=== PATIENT | female | born 1990 | race Caucasian/White ===

== ENCOUNTER 2016-12-14 00:08 | Emergency (ER) | payer BC ==
[2016-12-14 00:22] VITALS: BP 113/66
[2016-12-14] MEDS ORDERED: Metoclopramide 10 MG/2 ML SDV IVPUSH ONE (00:34)
[2016-12-14] MEDS ORDERED: Sodium Chloride 0.9% 1,000 ML IV STA (00:34)
[2016-12-14] MEDS ORDERED: Sodium Chloride 0.9% 10 ML Syringe FLUSH PRN (00:34)
[2016-12-14] MEDS ORDERED: Alum Hydrox/Mag Hydrox/Simeth 30 ML, Lidocaine 2% 15 ML PO ONE ×2 (00:37)
[2016-12-14] MEDS ORDERED: Famotidine 20 MG/2 ML SDV IVPUSH ONE (00:37)
[2016-12-14] MEDS: HYDROmorphone 0.5 MG/0.5 ML Syringe IVPUSH ONE ×2 (01:08→01:43)
[2016-12-14] MEDS ORDERED: HYDROmorphone 0.5 MG/0.5 ML Syringe IVPUSH ONE (01:12)
--- NOTE | 2016-12-14 01:30 | EDM.PDOC ---
ED HPI GENERAL MEDICAL PROBLEM - General Chief Complaint: Abdominal Pain Stated Complaint: 8 WKS PG CRAMPS Time Seen by Provider: 12/14/16 00:30 Source of Information: Reports: Patient, Family History Limitations: Reports: No Limitations - History of Present Illness INITIAL COMMENTS - FREE TEXT/NARRATIVE: The patient presents with upper abdominal pain that started a few hours ago. The pain is sharp and severe. She has nausea and vomiting with it. She has no diarrhea or dysuria. She is 8 weeks . She has no fever or chills. The pain radiated up into her chest at times. She has no cramping, vaginal discharge or vaginal bleeding. She has never had pain like this before. She still has her appendix and gallbladder. She has a problem with constipation. She had a BM yesterday but she had none for a few days. Onset: Sudden Duration: Hour(s): (4) Location: Reports: Abdomen (Upper) Quality: Reports: Sharp Severity: Severe Improves with: Reports: None Worsens with: Reports: None Context: Reports: Activity Associated Symptoms: Reports: Nausea/Vomiting. Denies: Cough, Fever/Chills, Loss of Appetite, Seizure, Shortness of Breath Upper Abdomen Pain Score (Numeric/FACES): 6 - Related Data Allergies Allergy/AdvReac Type Severity Reaction Status Date / Time No Known Allergies Allergy Verified 12/14/16 00:22 Home Meds: Home Meds Multivit-Min/Fe Fum/FA/Vit K [Multi For Her Softgel] 1 tab PO DAILY 12/14/16 [ History] Progesterone,Micronized [Endometrin] 100 mg VAG TID 12/14/16 [History] Past Medical History - Past Health History Medical/Surgical History: Denies Medical/Surgical History Social & Family History - Family History Cardiac: Reports: [place] : Reports: Dialysis Endocrine/Metabolic: Reports: Hypothyroidism - Tobacco Use Smoking Status *Q: Never Smoker Years of Tobacco use: 1 Second Hand Smoke Exposure: No - Caffeine Use Caffeine Use: Reports: Soda, Tea - Alcohol Use Days Per Week of Alcohol Use: 1 Number of Drinks Per Day: 4 Total Drinks Per Week: 4 - Recreational Drug Use Recreational Drug Use: No ED ROS GENERAL - Review of Systems Review Of Systems: See Below Constitutional: Reports: No Symptoms HEENT: Reports: No Symptoms Respiratory: Reports: No Symptoms Cardiovascular: Reports: No Symptoms Endocrine: Reports: No Symptoms GI/Abdominal: Reports: Abdominal Pain, Nausea, Vomiting. Denies: Diarrhea ED EXAM, GI/ABD - Physical Exam Exam: See Below Exam Limited By: No Limitations General Appearance: Alert, Mild Distress Ears: Normal External Exam Nose: Normal Inspection Head: Atraumatic, Normocephalic Neck: Normal Inspection Respiratory/Chest: No Respiratory Distress, Lungs Clear, Normal Breath Sounds Cardiovascular: Regular Rate, Rhythm, No Edema, No Murmur GI/Abdominal: Soft, No Organomegaly, No Mass, Tenderness (Epigastric region) Back Exam: Normal Inspection Extremities: Normal Inspection Course - Vital Signs Last Recorded V/S: Last Vital Signs Temp 98.4 F 12/14/16 00:18 Pulse 72 12/14/16 00:18 Resp 16 12/14/16 00:18 BP 113/66 12/14/16 00:18 Pulse Ox 100 12/14/16 00:18 - Orders/Labs/Meds Orders: Active Orders 24 hr Category Date Time Status Peripheral IV Care [RC] . DIRECTED Care 12/14/16 00:35 Active Abdomen Ltd [US] Stat Exams 12/14/16 01:55 Taken Magnesium Citrate [Citrate of Magnesia] Med 12/14/16 04:02 Once 100 ml PO ONETIME ONE Sodium Chloride 0.9% [Saline Flush] Med 12/14/16 00:34 Active 10 ml FLUSH ASDIRECTED PRN ED Antiemetic Medication Reflex [OM.PC] Stat Oth 12/14/16 00:36 Ordered Peripheral IV Insertion Adult [OM.PC] Stat Oth 12/14/16 00:34 Ordered Medication Orders Sodium Chloride (Saline Flush) 10 ml FLUSH ASDIRECTED PRN PRN Reason: Keep Vein Open Labs: Laboratory Tests 12/14/16 12/14/16 12/14/16 Range/Units 01:07 01:07 01:25 WBC 17.50 H (3.98-10.04) K/mm3 RBC 4.93 (3.98-5.22) M/mm3 Hgb 14.2 (11.2-15.7) gm/L Hct 41.7 (34.1-44.9) % MCV 84.6 (79.4-94.8) fl MCH 28.8 (25.6-32.2) pg MCHC 34.1 (32.2-35.5) g/dl RDW Std Deviation 41.5 (36.4-46.3) fL Plt Count 273 (182-369) K/mm3 MPV 9.9 (9.4-12.3) fl Neut % (Auto) 78.8 H (34.0-71.1) % Lymph % (Auto) 13.3 L (19.3-51.7) % [place] % (Auto) 6.3 (4.7-12.5) % Eos % (Auto) 1.2 (0.7-5.8) Baso % (Auto) 0.2 (0.1-1.2) % Neut # (Auto) 13.79 H (1.56-6.13) K/mm3 Lymph # (Auto) 2.32 (1.18-3.74) K/mm3 [place] # (Auto) 1.11 H (0.24-0.36) K/mm3 Eos # (Auto) 0.21 (0.04-0.36) K/mm3 Baso # (Auto) 0.03 (0.01-0.08) K/mm3 Sodium 136 (136-145) mEq/L Potassium 4.2 (3.5-5.1) mEq/L Chloride 100 (98-107) mEq/L Carbon Dioxide 27 (21-32) mEq/L Anion Gap 13.2 (5-15) BUN 14 (7-18) mg/dL Creatinine 1.0 (0.55-1.02) mg/dL Est Cr Clr Drug Dosing 84.49 mL/min Estimated GFR (MDRD) > 60 (>60) mL/min BUN/Creatinine Ratio 14.0 (14-18) Glucose 131 H (74-106) mg/dL Calcium 9.0 (8.5-10.1) mg/dL Total Bilirubin 0.2 (0.2-1.0) mg/dL AST 18 (15-37) U/L ALT 35 (14-59) U/L Alkaline Phosphatase 72 (46-116) U/L Total Protein 7.7 (6.4-8.2) g/dl Albumin 3.6 (3.4-5.0) g/dl Globulin 4.1 gm/dL Albumin/Globulin Ratio 0.9 L (1-2) Lipase 124 (73-393) U/L Urine Color Yellow (Yellow) Urine Appearance Clear (Clear) Urine pH 6.0 (5.0-8.0) Ur Specific [place] > or = 1.030 (1.005-1.030) Urine Protein 1+ H (Negative) Urine Glucose (UA) Negative (Negative) Urine Ketones Negative (Negative) Urine Occult Blood Negative (Negative) Urine Nitrite Negative (Negative) Urine Bilirubin Negative (Negative) Urine Urobilinogen 0.2 (0.2-1.0) Ur Leukocyte Esterase Negative (Negative) Urine RBC 0-5 (0-5) /hpf Urine WBC 0-5 (0-5) /hpf Ur Epithelial Cells 0-5 (0-5) /hpf Urine Bacteria Many H (FEW) /hpf Urine Mucus Many H (FEW) /hpf Meds: Medications Generic Name Dose Route Start Last Admin Trade Name Freq PRN Reason Stop Dose Admin Sodium Chloride 10 ml 12/14/16 00:34 Saline Flush FLUSH ASDIRECTED PRN Keep Vein Open Discontinued Medications Generic Name Dose Route Start Last Admin Trade Name Freq PRN Reason Stop Dose Admin Al Hydroxide/Mg Hydroxide 30 0 ml 12/14/16 00:37 12/14/16 01:01 ml/ Lidocaine HCl 15 ml PO 12/14/16 00:38 45 ml ONETIME ONE Administration Famotidine 20 mg 12/14/16 00:37 12/14/16 01:09 Pepcid IVPUSH 12/14/16 00:38 20 mg ONETIME ONE Administration Hydromorphone HCl 0.5 mg 12/14/16 00:37 12/14/16 01:43 Dilaudid IVPUSH 12/14/16 00:38 Not Given ONETIME ONE Hydromorphone HCl 0.5 mg 12/14/16 01:12 12/14/16 01:17 Dilaudid IVPUSH 12/14/16 01:13 0.5 mg ONETIME ONE Administration Sodium Chloride 1,000 mls @ 1,000 mls/hr 12/14/16 00:34 12/14/16 01:05 Normal Saline IV 12/14/16 01:33 1,000 mls/hr .BOLUS STA Administration Metoclopramide HCl 10 mg 12/14/16 00:34 12/14/16 01:06 Reglan IVPUSH 12/14/16 00:35 10 mg ONETIME ONE Administration - Re-Assessments/Exams Free Text/Narrative Re-Assessment/Exam: 12/14/16 01:29 I ordered an IV NS 1L bolus, reglan 10mg IV, dilaudid 0.5mg IV, pepcid 20mg IV, GI cocktail, labs, UA. 12/14/16 04:03 Her WBC was elevated at 17.5. Her CMP looks good. Her lipase was negative. Her UA was negative. Her US shows no cholelithiasis but she did have a dilated common bile duct measuring up to 1.1cm. This can normally be seen in . Non of her labs support an obstruction. I feel she has gastritis and some constipation. I will have her take prilosec and magnesium citrate. Departure - Departure Time of Disposition: 04:05 Disposition: Home, Self-Care 01 Condition: Good Clinical Impression: Gastritis Qualifiers: Gastritis type: unspecified gastritis Chronicity: acute Gastritis bleeding: without bleeding Qualified Code(s): K29.00 - Acute gastritis without bleeding Constipation Qualifiers: Constipation type: other constipation type Qualified Code(s): K59.09 - Other constipation - Discharge Information Referrals: Maria A Waterman MD [Primary Care Provider] - 1 Week Forms: ED Department Discharge Additional Instructions: Take prilosec daily until you see Dr Waterman. Follow the directions for the magnesium citrate. Drink plenty of water. Please return if you are worse. - My Orders Last 24 Hours: My Active Orders 12/14/16 00:34 Sodium Chloride 0.9% [Saline Flush] 10 ml FLUSH ASDIRECTED PRN Peripheral IV Insertion Adult [OM.PC] Stat 12/14/16 00:35 Peripheral IV Care [RC] . DIRECTED 12/14/16 00:36 ED Antiemetic Medication Reflex [OM.PC] Stat 12/14/16 01:55 Abdomen Ltd [US] Stat 12/14/16 04:02 Magnesium Citrate [Citrate of Magnesia] 100 ml PO ONETIME ONE - Assessment/Plan Last 24 Hours: My Active Orders 12/14/16 00:34 Sodium Chloride 0.9% [Saline Flush] 10 ml FLUSH ASDIRECTED PRN Peripheral IV Insertion Adult [OM.PC] Stat 12/14/16 00:35 Peripheral IV Care [RC] . DIRECTED 12/14/16 00:36 ED Antiemetic Medication Reflex [OM.PC] Stat 12/14/16 01:55 Abdomen Ltd [US] Stat 12/14/16 04:02 Magnesium Citrate [Citrate of Magnesia] 100 ml PO ONETIME ONE
[2016-12-14] MEDS ORDERED: Magnesium Citrate Solution 296 ML Bottle PO ONE (04:02)
--- NOTE | 2016-12-14 09:50 | US ---
Limited abdominal ultrasound: Multiple real-time images Comparison: No previous imaging. Liver shows no focal parenchymal abnormality. Gallbladder shows no gallstones. No gallbladder wall thickening is seen. Common bile duct is slightly enlarged up to 1.1 cm. Etiology is not identified for this CBD dilatation. Right kidney shows no hydronephrosis or mass. Pancreas appears within normal limits as seen. Impression: 1. Mildly dilated CBD of uncertain etiology. Please correlate if there are any abnormal biliary enzymes. If any further questions remain, follow-up ultrasound could be considered in 2-4 weeks. 2. No additional abnormality is identified on right upper quadrant abdominal ultrasound. Diagnostic code #3 I agree with preliminary report issued by [facility] ([facility] report finalized on 12/14/16, 4:54 AM Central Time)
== END 2016-12-14 04:13 | disposition home or self-care (01) ==
LOC: JD.ED 00:08
DX: O99.611 Diseases of the digestive system complicating pregnancy, first trimester (principal); K29.00 Acute gastritis without bleeding; K59.09 Other constipation; Z3A.08 8 weeks gestation of pregnancy
CPT/HCPCS: 36415; 76705; 80053; 81001; 83690; 85025; 96361; 96374; 96375; 99284; A9270; J1170; J2765; J7040

== ENCOUNTER 2017-07-23 05:16 | Inpatient (IN) | payer BC ==
[2017-07-23] MEDS ORDERED: Sodium Chloride 0.9% 10 ML Syringe FLUSH PRN (07:27)
[2017-07-23] MEDS ORDERED: Ondansetron 4 MG/2 ML SDV IVPUSH PRN (07:27)
[2017-07-23] MEDS ORDERED: Nalbuphine 20 MG/1 ML Amp IVPUSH PRN (07:27)
[2017-07-23] MEDS ORDERED: Oxytocin/Lactated Ringers 10 UNIT/1,000 ML BAG IV SCH ×2 (07:30)
--- NOTE | 2017-07-23 07:32 | PCM.LDHP ---
L&D History of Present Illness - General Date of Service: 07/23/17 Admit Problem/Dx: Patient Status Order with Admit Dx/Problem 07/23/17 07:28 Patient Status [ADT] Routine Admission Diagnosis/Problem Admission Diagnosis/Problem Normal Source of Information: Patient History Limitations: Reports: No Limitations - History of Present Illness Introduction:: Patient is a 27 y/o at 40 2/7 wks who presents for IOL for post dates. However, this morning started noticing some cramping and contractions. Mild- moderate overall. No bleeding. No LOF. - Related Data Allergies/Adverse Reactions: Allergies Allergy/AdvReac Type Severity Reaction Status Date / Time No Known Allergies Allergy Verified 12/14/16 00:22 Home Medications: Home Meds Multivit-Min/Fe Fum/FA/Vit K [Multi For Her Softgel] 1 tab PO DAILY 12/14/16 [ History] Progesterone,Micronized [Endometrin] 100 mg VAG TID 12/14/16 [History] Past Medical History Cardiovascular History: Reports: Other (See Below) (Hypertriglyceridemia) Endocrine/Metabolic History: Reports: Other (See Below) (Thyroid nodule) - Past Surgical History HEENT Surgical History: Reports: Oral Surgery ([place] tooth extraction) Social & Family History - Family History Cardiac: Reports: [place] : Reports: Dialysis Endocrine/Metabolic: Reports: Hypothyroidism - Tobacco Use Smoking Status *Q: Former Smoker Years of Tobacco use: 1 Second Hand Smoke Exposure: No - Caffeine Use Caffeine Use: Reports: Soda, Tea - Alcohol Use Alcohol Use History: No - Recreational Drug Use Recreational Drug Use: No H&P Review of Systems - Review of Systems: Review Of Systems: See Below General: Reports: No Symptoms Pulmonary: Reports: No Symptoms Cardiovascular: Reports: No Symptoms Gastrointestinal: Reports: Abdominal Pain (Having some tightening/contractions ) Genitourinary: Reports: No Symptoms Musculoskeletal: Reports: No Symptoms L&D Exam - Exam Exam: See Below - OB Specific Contraction Intensity: Mild Movement: Active Heart Tones: Present Heart Rate (FHR) Variability: Moderate (6-25 bmp) Presentation: Vertex - Perez Score Perez Score Cervix Position: Midposition Perez Score Consistency: Soft Perez Score Effacement: >80% Perez Score Dilation: 1-2 cm (2-3 cm) Perez Score Infant's Station: -2 Perez Score Total: 8 - Exam General: Alert, Oriented, Cooperative Lungs: Clear to Auscultation, Normal Respiratory Effort Cardiovascular: Regular Rate, Regular Rhythm GI/Abdominal Exam: Soft, Non-Tender Genitourinary: Normal external exam Extremities: Normal Inspection Skin: Warm, Dry, Intact - Problem List (1) 40 weeks gestation of SNOMED Code(s): 66838014 ICD Code: Z3A.40 - 40 WEEKS GESTATION OF Status: Acute Current Visit: Yes (2) Rubella non-immune status, antepartum SNOMED Code(s): 184855587 ICD Code: O99.89 - OTH DISEASES AND CONDITIONS COMPL PREG/CHLDBRTH; Z28.3 - UNDERIMMUNIZATION STATUS Status: Acute Current Visit: Yes Problem List Initiated/Reviewed/Updated: Yes Orders Last 24hrs: Active Orders 24 hr Category Date Time Status Patient Status [ADT] Routine ADT 07/23/17 07:28 Ordered Activity as Tolerated [RC] PFP Care 07/23/17 07:28 Ordered Communication Order [RC] ASDIRECTED Care 07/23/17 07:28 Ordered Communication Order [RC] ASDIRECTED Care 07/23/17 07:28 Ordered Communication Order [RC] ASDIRECTED Care 07/23/17 07:28 Ordered Heart Tones [RC] ASDIRECTED Care 07/23/17 07:29 Ordered Monitoring [RC] INTERMITTENT Care 07/23/17 07:28 Ordered Notify Provider [RC] ASDIRECTED Care 07/23/17 07:28 Ordered Notify Provider [RC] PRN Care 07/23/17 07:28 Ordered Peripheral IV Care [RC] . DIRECTED Care 07/23/17 07:29 Ordered Up ad Lore [RC] ASDIRECTED Care 07/23/17 07:28 Ordered Vaginal Exam [RC] ASDIRECTED Care 07/23/17 07:28 Ordered Vital Signs [RC] ASDIRECTED Care 07/23/17 07:28 Ordered Regular Diet [DIET] Diet 07/23/17 Breakfast Ordered CBC W/O DIFF,HEMOGRAM [HEME] Routine Lab 07/23/17 07:27 Ordered TYPE AND SCREEN [BBK] Routine Lab 07/23/17 07:27 Ordered Lactated Ringers [Ringers, Lactated] 1,000 ml Med 07/23/17 07:30 Ordered IV ASDIRECTED Nalbuphine [Nubain] Med 07/23/17 07:27 Ordered 10 mg IVPUSH Q2H PRN Ondansetron [Zofran] Med 07/23/17 07:27 Ordered 4 mg IVPUSH Q4H PRN Oxytocin/Lactated Ringers [Pitocin in LR 10 Units/1,000 Med 07/23/17 07:30 Ordered ML] 10 unit in 1,000 ml IV .CONTINUOUS Oxytocin/Lactated Ringers [Pitocin in LR 10 Units/1,000 Med 07/23/17 07:30 Ordered ML] 10 unit in 1,000 ml IV TITRATE Sodium Chloride 0.9% [Saline Flush] Med 07/23/17 07:27 Ordered 10 ml FLUSH ASDIRECTED PRN Electronic Heart Tones Ext w TOCO [WOMSER] Oth 07/23/17 07:28 Ordered Routine Electronic Heart Tones Internal [WOMSER] Per Unit Ot 07/23/17 07:28 Ordered Routine Peripheral IV Insertion Adult [OM.PC] Routine Oth 07/23/17 07:28 Ordered Resuscitation Status Routine Resus Stat 07/23/17 07:27 Ordered Assessment/Plan Comment:: 27 y/o at 40 2/7 wks who presents for IOL, but likely in latent labor. * CBC and T&S * GBS negative, no need for antibiotics * Aguilar bulb placed on admission. Will start small amount of pitocin as well. Consider AROM in future * Pain management per patient preference * Anticipate
[2017-07-23] MEDS: Lactated Ringers 1,000 ML IV SCH ×3 (08:14→13:22)
[2017-07-23] MEDS ORDERED: Pseudoephedrine 30 MG Tab PO ONE (09:18)
[2017-07-23] MEDS ORDERED: diphenhydrAMINE 50 MG/ML SDV IVPUSH PRN (09:39)
[2017-07-23] MEDS ORDERED: fentaNYL 100 MCG/2 ML SDV EPIDUR PRN (09:39)
[2017-07-23] MEDS ORDERED: ePHEDrine 50 MG/ML SDV IVPUSH PRN (09:39)
--- NOTE | 2017-07-23 09:39 | PCM.PREANE ---
Preanesthetic Assessment - Anesthesia/Transfusion/Family Hx Anesthesia History: No Prior Anesthesia Family History of Anesthesia Reaction: No Transfusion History: No Prior Transfusion(s) - Review of Systems General: No Symptoms Pulmonary: No Symptoms Cardiovascular: No Symptoms Gastrointestinal: No Symptoms Neurological: No Symptoms Other: Reports: None - Physical Assessment Respiratory Rate: 16 Vital Signs: Last Vital Signs Temp 36.3 C 07/23/17 07:28 Pulse 91 07/23/17 07:28 Resp 16 07/23/17 07:28 BP 117/80 07/23/17 07:28 Pulse Ox Height: 1.73 m Weight: 94.801 kg ASA Class: 2 Mental Status: Alert & Oriented x3 Airway Class: Mallampati = 1 Dentition: Reports: Normal Dentition Thyro-Mental Finger Breadths: 3 Mouth Opening Finger Breadths: 3 ROM/Head Extension: Full Lungs: Clear to Auscultation, Normal Respiratory Effort Cardiovascular: Regular Rate, Regular Rhythm - Lab Values: Laboratory Last Values WBC 13.30 K/mm3 (3.98-10.04) H 07/23/17 08:02 RBC 4.45 M/mm3 (3.98-5.22) 07/23/17 08:02 Hgb 12.3 gm/L (11.2-15.7) 07/23/17 08:02 Hct 38.0 % (34.1-44.9) 07/23/17 08:02 MCV 85.4 fl (79.4-94.8) 07/23/17 08:02 MCH 27.6 pg (25.6-32.2) 07/23/17 08:02 MCHC 32.4 g/dl (32.2-35.5) 07/23/17 08:02 RDW Std Deviation 44.8 fL (36.4-46.3) 07/23/17 08:02 Plt Count 260 K/mm3 (182-369) 07/23/17 08:02 MPV 10.0 fl (9.4-12.3) 07/23/17 08:02 Blood Type O POSITIVE 07/23/17 08:02 Gel Antibody Screen Negative 07/23/17 08:02 - Allergies Allergies/Adverse Reactions: Allergies Allergy/AdvReac Type Severity Reaction Status Date / Time No Known Allergies Allergy Verified 12/14/16 00:22 - Acknowledgements Anesthesia Type Planned: Epidural Pt an Appropriate Candidate for the Planned Anesthesia: Yes Alternatives and Risks of Anesthesia Discussed w Pt/Guardian: Yes Pt/Guardian Understands and Agrees with Anesthesia Plan: Yes PreAnesthesia Questionnaire - Past Health History Medical/Surgical History: Denies Medical/Surgical History Cardiovascular History: Reports: Other (See Below) (Hypertriglyceridemia) 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: Endocrine/Metabolic History: Reports: Other (See Below) Other Endocrine/Metabolic History: thyroid nodule - Past Surgical History HEENT Surgical History: Reports: Oral Surgery - SUBSTANCE USE Smoking Status *Q: Former Smoker Tobacco Use Within Last Twelve Months: Cigarettes Second Hand Smoke Exposure: No Days Per Week of Alcohol Use: 1 Number of Drinks Per Day: 4 Total Drinks Per Week: 4 Recreational Drug Use History: No - HOME MEDS Home Medications: Home Meds Multivit-Min/Fe Fum/FA/Vit K [Multi For Her Softgel] 1 tab PO DAILY 12/14/16 [ History] Progesterone,Micronized [Endometrin] 100 mg VAG TID 12/14/16 [History] - CURRENT (IN HOUSE) MEDS Current Meds: Current Medications Lactated Ringer's (Ringers, Lactated) 1,000 mls @ 40 mls/hr IV ASDIRECTED ALEX Last Admin: 07/23/17 08:14 Dose: 40 mls/hr Oxytocin/Lactated Ringer's (Pitocin In Lr 10 Units/1,000 Ml) 10 unit in 1,000 mls @ 12 mls/hr IV TITRATE ALEX; 2 MUNITS/MIN PRN Reason: Protocol Last Admin: 07/23/17 08:17 Dose: 2 munits/min, 12 mls/hr Oxytocin/Lactated Ringer's (Pitocin In Lr 10 Units/1,000 Ml) 10 unit in 1,000 mls @ 500 mls/hr IV .CONTINUOUS ALEX Nalbuphine HCl (Nubain) 10 mg IVPUSH Q2H PRN PRN Reason: Pain (moderate 4-6) Ondansetron HCl (Zofran) 4 mg IVPUSH Q4H PRN PRN Reason: Nausea/Vomiting Sodium Chloride (Saline Flush) 10 ml FLUSH ASDIRECTED PRN PRN Reason: Keep Vein Open Discontinued Medications Pseudoephedrine HCl (Sudogest) 30 mg PO ONETIME ONE Stop: 07/23/17 09:19
[2017-07-23] MEDS ORDERED: Bupivacaine/fentaNYL/NS 100 ML Bag EPIDUR SCH (09:45)
--- NOTE | 2017-07-23 12:21 | PCM.PNLD ---
Labor Progress Note - VS & Meds Vital Signs: Last Vital Signs Temp 36.3 C 07/23/17 07:28 Pulse 91 07/23/17 07:28 Resp 16 07/23/17 09:39 BP 117/80 07/23/17 07:28 Pulse Ox Active Medications: Current Medications Diphenhydramine HCl (Benadryl) 25 mg IVPUSH Q6H PRN PRN Reason: Pruritis Ephedrine Sulfate (Ephedrine Sulfate) 5 mg IVPUSH ASDIRECTED PRN PRN Reason: Hypotension Fentanyl (Sublimaze) 100 mcg EPIDUR ONETIME PRN PRN Reason: Pain Fentanyl/Bupivacaine HCl (Fentanyl/Bupivacaine/Ns 2 Mcg-0.125% 100 Ml) 100 ml EPIDUR ASDIRECTED ALEX Lactated Ringer's (Ringers, Lactated) 1,000 mls @ 40 mls/hr IV ASDIRECTED ALEX Last Admin: 07/23/17 08:14 Dose: 40 mls/hr Oxytocin/Lactated Ringer's (Pitocin In Lr 10 Units/1,000 Ml) 10 unit in 1,000 mls @ 12 mls/hr IV TITRATE ALEX; 2 MUNITS/MIN PRN Reason: Protocol Last Titration: 07/23/17 10:30 Dose: 6 munits/min, 36 mls/hr Oxytocin/Lactated Ringer's (Pitocin In Lr 10 Units/1,000 Ml) 10 unit in 1,000 mls @ 500 mls/hr IV .CONTINUOUS ALEX Nalbuphine HCl (Nubain) 10 mg IVPUSH Q2H PRN PRN Reason: Pain (moderate 4-6) Ondansetron HCl (Zofran) 4 mg IVPUSH Q4H PRN PRN Reason: Nausea/Vomiting Sodium Chloride (Saline Flush) 10 ml FLUSH ASDIRECTED PRN PRN Reason: Keep Vein Open Discontinued Medications Pseudoephedrine HCl (Sudogest) 30 mg PO ONETIME ONE Stop: 07/23/17 09:19 Last Admin: 07/23/17 09:54 Dose: 30 mg - Uterine Contractions Uterine Monitoring Mode: External [place] Contraction Intensity: Moderate - Monitoring Monitor Mode: External Ultrasound Heart Rate (FHR) Baseline: 125 Heart Rate (FHR) Variability: Moderate (6-25 bmp) Accelerations: Present, 15x15 Decelerations: None Strip Review: Category I - Vaginal Exam Dilation (cm): 4-5 Effacement (Percent): 80 Station: -1 Cervical Position: Midposition - Labor Progress (Free Text) Labor Progress: Doing well. Aguilar bulb removed with check. Pitocin at 6. Continue present management
--- NOTE | 2017-07-23 13:23 | PCM.PNLD ---
Labor Progress Note - VS & Meds Vital Signs: Last Vital Signs Temp 36.3 C 07/23/17 07:28 Pulse 91 07/23/17 07:28 Resp 16 07/23/17 09:39 BP 117/80 07/23/17 07:28 Pulse Ox Active Medications: Current Medications Diphenhydramine HCl (Benadryl) 25 mg IVPUSH Q6H PRN PRN Reason: Pruritis Ephedrine Sulfate (Ephedrine Sulfate) 5 mg IVPUSH ASDIRECTED PRN PRN Reason: Hypotension Fentanyl (Sublimaze) 100 mcg EPIDUR ONETIME PRN PRN Reason: Pain Last Admin: 07/23/17 12:45 Dose: 100 mcg Fentanyl/Bupivacaine HCl (Fentanyl/Bupivacaine/Ns 2 Mcg-0.125% 100 Ml) 100 ml EPIDUR ASDIRECTED ALEX Last Admin: 07/23/17 12:45 Dose: 100 ml Lactated Ringer's (Ringers, Lactated) 1,000 mls @ 40 mls/hr IV ASDIRECTED ALEX Last Admin: 07/23/17 12:35 Dose: 999 mls/hr Oxytocin/Lactated Ringer's (Pitocin In Lr 10 Units/1,000 Ml) 10 unit in 1,000 mls @ 12 mls/hr IV TITRATE ALEX; 2 MUNITS/MIN PRN Reason: Protocol Last Titration: 07/23/17 10:30 Dose: 6 munits/min, 36 mls/hr Oxytocin/Lactated Ringer's (Pitocin In Lr 10 Units/1,000 Ml) 10 unit in 1,000 mls @ 500 mls/hr IV .CONTINUOUS ALEX Nalbuphine HCl (Nubain) 10 mg IVPUSH Q2H PRN PRN Reason: Pain (moderate 4-6) Ondansetron HCl (Zofran) 4 mg IVPUSH Q4H PRN PRN Reason: Nausea/Vomiting Sodium Chloride (Saline Flush) 10 ml FLUSH ASDIRECTED PRN PRN Reason: Keep Vein Open Discontinued Medications Pseudoephedrine HCl (Sudogest) 30 mg PO ONETIME ONE Stop: 07/23/17 09:19 Last Admin: 07/23/17 09:54 Dose: 30 mg - Uterine Contractions Uterine Monitoring Mode: External [place] Contraction Intensity: Moderate - Monitoring Monitor Mode: External Ultrasound Heart Rate (FHR) Baseline: 135 Heart Rate (FHR) Variability: Moderate (6-25 bmp) Accelerations: Present, 15x15 Decelerations: None Strip Review: Category I - Vaginal Exam Dilation (cm): 6 Effacement (Percent): 90 Station: -1 Cervical Position: Midposition - Labor Progress (Free Text) Labor Progress: Patient doing well. Just finished epidural. On 6 of pitocin. Continue present management,.
--- NOTE | 2017-07-23 19:32 | PCM.DEL ---
L & D Note - General Info Date of Service: 07/23/17 - Delivery Note Labor: Induced by Oxytocin Cervical Ripening Method: Balloon Device Delivery Outcome: Livebirth Infant Delivery Method: Spontaneous Vaginal Delivery-Single Infant Delivery Mode: Spontaneous Presentation: Left Occiput Anterior (GILSON) Nuchal Cord: None Anesthesia Type: Epidural Amniotic Fluid Description: Clear Episiotomy Type: None Laceration: 2nd Degree, Perineal Suture type: Vicryl Suture size: 2-0 Placenta: Intact, Spontaneous Cord: 3 Vessels Estimated Blood Loss: 250 Resuscitation Needed: Yes : Suctioned, Bulb Syringe, Stimulated, Warmed, [place] Used, Warmer Used Score 1 min: 8 Score 5 min: 9 Delivery Comments (Free Text/Narrative):: Patient found to be complete and began pushing. With maternal pushing effort head delivered from an GILSON presentation. No nuchal cord present. With gentle downward traction the shoulders and body delivered. placed on maternal abdomen. Cord clamped and cut. Cord blood obtained. Placenta allowed time to separate and expelled intact. Inspection of the perineum showed a 2nd degree laceration which was repaired with a 2-0 vicryl in the typical fashion. - Patient Data Vitals - Most Recent: Last Vital Signs Temp 36.3 C 07/23/17 07:28 Pulse 91 07/23/17 07:28 Resp 16 07/23/17 09:39 BP 117/80 07/23/17 07:28 Pulse Ox Weight - Most Recent: 94.801 kg I&O - Last 24 Hours: Intake & Output 07/23/17 07/23/17 07/23/17 06:59 14:59 22:59 Intake Total 0 120 Balance 0 120 Lab Results Last 24 Hours: Laboratory Results - last 24 hr 07/23/17 07/23/17 Range/Units 08:02 08:02 WBC 13.30 H (3.98-10.04) K/mm3 RBC 4.45 (3.98-5.22) M/mm3 Hgb 12.3 (11.2-15.7) gm/L Hct 38.0 (34.1-44.9) % MCV 85.4 (79.4-94.8) fl MCH 27.6 (25.6-32.2) pg MCHC 32.4 (32.2-35.5) g/dl RDW Std Deviation 44.8 (36.4-46.3) fL Plt Count 260 (182-369) K/mm3 MPV 10.0 (9.4-12.3) fl Blood Type O POSITIVE Gel Antibody Screen Negative Med Orders - Current: Current Medications Diphenhydramine HCl (Benadryl) 25 mg IVPUSH Q6H PRN PRN Reason: Pruritis Ephedrine Sulfate (Ephedrine Sulfate) 5 mg IVPUSH ASDIRECTED PRN PRN Reason: Hypotension Fentanyl (Sublimaze) 100 mcg EPIDUR ONETIME PRN PRN Reason: Pain Last Admin: 07/23/17 12:45 Dose: 100 mcg Fentanyl/Bupivacaine HCl (Fentanyl/Bupivacaine/Ns 2 Mcg-0.125% 100 Ml) 100 ml EPIDUR ASDIRECTED ALEX Last Admin: 07/23/17 12:45 Dose: 100 ml Lactated Ringer's (Ringers, Lactated) 1,000 mls @ 40 mls/hr IV ASDIRECTED ALEX Last Admin: 07/23/17 13:22 Dose: 999 mls/hr Oxytocin/Lactated Ringer's (Pitocin In Lr 10 Units/1,000 Ml) 10 unit in 1,000 mls @ 12 mls/hr IV TITRATE ALEX; 2 MUNITS/MIN PRN Reason: Protocol Last Titration: 07/23/17 16:01 Dose: 9 munits/min, 54 mls/hr Oxytocin/Lactated Ringer's (Pitocin In Lr 10 Units/1,000 Ml) 10 unit in 1,000 mls @ 500 mls/hr IV .CONTINUOUS ALEX Nalbuphine HCl (Nubain) 10 mg IVPUSH Q2H PRN PRN Reason: Pain (moderate 4-6) Ondansetron HCl (Zofran) 4 mg IVPUSH Q4H PRN PRN Reason: Nausea/Vomiting Sodium Chloride (Saline Flush) 10 ml FLUSH ASDIRECTED PRN PRN Reason: Keep Vein Open Discontinued Medications Pseudoephedrine HCl (Sudogest) 30 mg PO ONETIME ONE Stop: 07/23/17 09:19 Last Admin: 07/23/17 09:54 Dose: 30 mg - Problem List & Annotations (1) 40 weeks gestation of SNOMED Code(s): 37119098 Code(s): Z3A.40 - 40 WEEKS GESTATION OF Status: Acute Current Visit: Yes (2) Rubella non-immune status, antepartum SNOMED Code(s): 567544009 Code(s): O99.89 - OTH DISEASES AND CONDITIONS COMPL PREG/CHLDBRTH; Z28.3 - UNDERIMMUNIZATION STATUS Status: Acute Current Visit: Yes (3) Vaginal delivery SNOMED Code(s): 318267593 Code(s): O80 - ENCOUNTER FOR FULL-TERM UNCOMPLICATED DELIVERY Status: Acute Current Visit: Yes - Problem List Review Problem List Initiated/Reviewed/Updated: Yes - My Orders Last 24 Hours: My Active Orders 07/23/17 07:27 Nalbuphine [Nubain] 10 mg IVPUSH Q2H PRN Ondansetron [Zofran] 4 mg IVPUSH Q4H PRN Sodium Chloride 0.9% [Saline Flush] 10 ml FLUSH ASDIRECTED PRN Resuscitation Status Routine 07/23/17 07:28 Patient Status [ADT] Routine Activity as Tolerated [RC] PFP Communication Order [RC] ASDIRECTED Communication Order [RC] ASDIRECTED Communication Order [RC] ASDIRECTED Monitoring [RC] INTERMITTENT Notify Provider [RC] ASDIRECTED Notify Provider [RC] PRN Up ad Lore [RC] ASDIRECTED Vaginal Exam [RC] ASDIRECTED Vital Signs [RC] ASDIRECTED Electronic Heart Tones Ext w TOCO [WOMSER] Routine Electronic Heart Tones Internal [WOMSER] Per Unit Routine Peripheral IV Insertion Adult [OM.PC] Routine 07/23/17 07:29 Heart Tones [RC] ASDIRECTED 07/23/17 07:30 Lactated Ringers [Ringers, Lactated] 1,000 ml IV ASDIRECTED Oxytocin/Lactated Ringers [Pitocin in LR 10 Units/1,000 ML] 10 unit in 1,000 ml IV .CONTINUOUS Oxytocin/Lactated Ringers [Pitocin in LR 10 Units/1,000 ML] 10 unit in 1,000 ml IV TITRATE 07/23/17 08:02 PATIENT RETYPE [BBK] Routine TYPE AND SCREEN [BBK] Routine 07/23/17 Breakfast Regular Diet [DIET] - Assessment Assessment:: 27 y/o G1 now P1001 PPD#0 from at 40 2/7 wks - Plan Plan:: * Routine cares * Encourage breast feeding * MMR prior to discharge * Discharge home in 1-2 days
[2017-07-23] MEDS ORDERED: Benzocaine/Menthol 20%-0.5% Spray 56 GM Canister TOP PRN (20:52)
[2017-07-23] MEDS ORDERED: Witch Hazel Medicated Pads 100/Jar TOP PRN (20:52)
[2017-07-23] MEDS ORDERED: Acetaminophen 325 MG Tab PO PRN (20:52)
[2017-07-23] MEDS: Ibuprofen 600 MG Tab PO PRN (21:42)
[2017-07-23] MEDS: Lanolin 100% Cream 7 GM Tube TOP PRN (21:45)
[2017-07-23] MEDS ORDERED: Bupivacaine 0.25% 10 ML SDV ONE (22:22)
[2017-07-24] MEDS: Docusate Sodium 100 MG Cap PO PRN (04:33)
[2017-07-24] MEDS: Ibuprofen 600 MG Tab PO PRN ×3 (04:33→17:40)
--- NOTE | 2017-07-24 10:50 | PCM.SN ---
- Free Text/Narrative Note: exam Afebrile, chest clear, uterus at umbilicus -1. No heavy vaginal bleeding. No leg cramping.
[2017-07-24] MEDS: Lanolin 100% Cream 7 GM Tube TOP PRN (16:18)
[2017-07-24] MEDS ORDERED: Measles, Mumps & Rubella Vaccine 0.5 ML SDV SUBCUT ONE (19:32)
[2017-07-25 03:33] VITALS: BP 111/54
[2017-07-25] MEDS: Ibuprofen 600 MG Tab PO PRN (05:35)
[2017-07-25] MEDS: Docusate Sodium 100 MG Cap PO PRN (05:36)
--- NOTE | 2017-07-25 10:36 | PCM.DCSUM1 ---
Discharge Summary - Hospital Course Free Text/Narrative:: [facility] LIVE L/D Delivery Note Patient Name: CRISTAL WHITFEILD Date of : 86 Patient Status: Inpatient Attending Provider: Maria A Waterman Date: 07/23/17 19:28 Initialization Date: 07/23/17 19:28 L & D Note - General Info Date of Service: 07/23/17 - Delivery Note Labor: Induced by Oxytocin Cervical Ripening Method: Balloon Device Delivery Outcome: Livebirth Infant Delivery Method: Spontaneous Vaginal Delivery-Single Delivery Mode: Spontaneous Presentation: Left Occiput Anterior (GILSON) Nuchal Cord: None Anesthesia Type: Epidural Amniotic Fluid Description: Clear Episiotomy Type: None Laceration: 2nd Degree, Perineal Suture type: Vicryl Suture size: 2-0 Placenta: Intact, Spontaneous Cord: 3 Vessels Estimated Blood Loss: 250 Resuscitation Needed: Yes : Suctioned, Bulb Syringe, Stimulated, Warmed, [place] Used, Warmer Used Score 1 min: 8 Score 5 min: 9 Delivery Comments (Free Text/Narrative):: Patient found to be complete and began pushing. With maternal pushing effort head delivered from an GILSON presentation. No nuchal cord present. With gentle downward traction the shoulders and body delivered. placed on maternal abdomen. Cord clamped and cut. Cord blood obtained. Placenta allowed time to separate and expelled intact. Inspection of the perineum showed a 2nd degree laceration which was repaired with a 2-0 vicryl in the typical fashion. - Patient Data Vitals - Most Recent: Last Vital Signs Temp 36.3 C 07/23/17 07:28 Pulse 91 07/23/17 07:28 Resp 16 07/23/17 09:39 BP 117/80 07/23/17 07:28 Pulse Ox Weight - Most Recent: 94.801 kg I&O - Last 24 Hours: Intake & Output 07/23/17 07/23/17 07/23/17 06:59 14:59 22:59 Intake Total 0 120 Balance 0 120 Lab Results Last 24 Hours: Laboratory Results - last 24 hr 07/23/17 07/23/17 Range/Units 08:02 08:02 WBC 13.30 H (3.98-10.04) K/mm3 RBC 4.45 (3.98-5.22) M/mm3 Hgb 12.3 (11.2-15.7) gm/L Hct 38.0 (34.1-44.9) % MCV 85.4 (79.4-94.8) fl MCH 27.6 (25.6-32.2) pg MCHC 32.4 (32.2-35.5) g/dl RDW Std Deviation 44.8 (36.4-46.3) fL Plt Count 260 (182-369) K/mm3 MPV 10.0 (9.4-12.3) fl Blood Type O POSITIVE Gel Antibody Screen Negative Med Orders - Current: Current Medications Diphenhydramine HCl (Benadryl) 25 mg IVPUSH Q6H PRN PRN Reason: Pruritis Ephedrine Sulfate (Ephedrine Sulfate) 5 mg IVPUSH ASDIRECTED PRN PRN Reason: Hypotension Fentanyl (Sublimaze) 100 mcg EPIDUR ONETIME PRN PRN Reason: Pain Last Admin: 07/23/17 12:45 Dose: 100 mcg Fentanyl/Bupivacaine HCl (Fentanyl/Bupivacaine/Ns 2 Mcg-0.125% 100 Ml) 100 ml EPIDUR ASDIRECTED ALEX Last Admin: 07/23/17 12:45 Dose: 100 ml Lactated Ringer's (Ringers, Lactated) 1,000 mls @ 40 mls/hr IV ASDIRECTED ALEX Last Admin: 07/23/17 13:22 Dose: 999 mls/hr Oxytocin/Lactated Ringer's (Pitocin In Lr 10 Units/1,000 Ml) 10 unit in 1,000 mls @ 12 mls/hr IV TITRATE ALEX; 2 MUNITS/MIN PRN Reason: Protocol Last Titration: 07/23/17 16:01 Dose: 9 munits/min, 54 mls/hr Oxytocin/Lactated Ringer's (Pitocin In Lr 10 Units/1,000 Ml) 10 unit in 1,000 mls @ 500 mls/hr IV .CONTINUOUS ALEX Nalbuphine HCl (Nubain) 10 mg IVPUSH Q2H PRN PRN Reason: Pain (moderate 4-6) Ondansetron HCl (Zofran) 4 mg IVPUSH Q4H PRN PRN Reason: Nausea/Vomiting Sodium Chloride (Saline Flush) 10 ml FLUSH ASDIRECTED PRN PRN Reason: Keep Vein Open Discontinued Medications Pseudoephedrine HCl (Sudogest) 30 mg PO ONETIME ONE Stop: 07/23/17 09:19 Last Admin: 07/23/17 09:54 Dose: 30 mg - Problem List & Annotations (1) 40 weeks gestation of SNOMED Code(s): 86585453 Code(s): Z3A.40 - 40 WEEKS GESTATION OF Status: Acute Current Visit: Yes (2) Rubella non-immune status, antepartum SNOMED Code(s): 143397098 Code(s): O99.89 - OTH DISEASES AND CONDITIONS COMPL PREG/CHLDBRTH; Z28.3 - UNDERIMMUNIZATION STATUS Status: Acute Current Visit: Yes (3) Vaginal delivery SNOMED Code(s): 838646327 Code(s): O80 - ENCOUNTER FOR FULL-TERM UNCOMPLICATED DELIVERY Status: Acute Current Visit: Yes - Problem List Review Problem List Initiated/Reviewed/Updated: Yes - My Orders Last 24 Hours: My Active Orders 07/23/17 07:27 Nalbuphine [Nubain] 10 mg IVPUSH Q2H PRN Ondansetron [Zofran] 4 mg IVPUSH Q4H PRN Sodium Chloride 0.9% [Saline Flush] 10 ml FLUSH ASDIRECTED PRN Resuscitation Status Routine 07/23/17 07:28 Patient Status [ADT] Routine Activity as Tolerated [RC] PFP Communication Order [RC] ASDIRECTED Communication Order [RC] ASDIRECTED Communication Order [RC] ASDIRECTED Monitoring [RC] INTERMITTENT Notify Provider [RC] ASDIRECTED Notify Provider [RC] PRN Up ad Lore [RC] ASDIRECTED Vaginal Exam [RC] ASDIRECTED Vital Signs [RC] ASDIRECTED Electronic Heart Tones Ext w TOCO [WOMSER] Routine Electronic Heart Tones Internal [WOMSER] Per Unit Routine Peripheral IV Insertion Adult [OM.PC] Routine 07/23/17 07:29 Heart Tones [RC] ASDIRECTED 07/23/17 07:30 Lactated Ringers [Ringers, Lactated] 1,000 ml IV ASDIRECTED Oxytocin/Lactated Ringers [Pitocin in LR 10 Units/1,000 ML] 10 unit in 1,000 ml IV .CONTINUOUS Oxytocin/Lactated Ringers [Pitocin in LR 10 Units/1,000 ML] 10 unit in 1,000 ml IV TITRATE 07/23/17 08:02 PATIENT RETYPE [BBK] Routine TYPE AND SCREEN [BBK] Routine 07/23/17 Breakfast Regular Diet [DIET] - Assessment Assessment:: 27 y/o G1 now P1001 PPD#0 from at 40 2/7 wks - Plan Plan:: * Routine cares * Encourage breast feeding * MMR prior to discharge * Discharge home in 1-2 days HPI Initial Comments: [facility] LIVE L/D Delivery Note Patient Name: CRISTAL WHITFIELD Date of : 86 Patient Status: Inpatient Attending Provider: Maria A Waterman Date: 07/23/17 19:28 Initialization Date: 07/23/17 19:28 L & D Note - General Info Date of Service: 07/23/17 - Delivery Note Labor: Induced by Oxytocin Cervical Ripening Method: Balloon Device Delivery Outcome: Livebirth Infant Delivery Method: Spontaneous Vaginal Delivery-Single Delivery Mode: Spontaneous Presentation: Left Occiput Anterior (GILSON) Nuchal Cord: None Anesthesia Type: Epidural Amniotic Fluid Description: Clear Episiotomy Type: None Laceration: 2nd Degree, Perineal Suture type: Vicryl Suture size: 2-0 Placenta: Intact, Spontaneous Cord: 3 Vessels Estimated Blood Loss: 250 Resuscitation Needed: Yes : Suctioned, Bulb Syringe, Stimulated, Warmed, [place] Used, Warmer Used Score 1 min: 8 Score 5 min: 9 Delivery Comments (Free Text/Narrative):: Patient found to be complete and began pushing. With maternal pushing effort head delivered from an GILSON presentation. No nuchal cord present. With gentle downward traction the shoulders and body delivered. Infant placed on maternal abdomen. Cord clamped and cut. Cord blood obtained. Placenta allowed time to separate and expelled intact. Inspection of the perineum showed a 2nd degree laceration which was repaired with a 2-0 vicryl in the typical fashion. - Patient Data Vitals - Most Recent: Last Vital Signs Temp 36.3 C 07/23/17 07:28 Pulse 91 07/23/17 07:28 Resp 16 07/23/17 09:39 BP 117/80 07/23/17 07:28 Pulse Ox Weight - Most Recent: 94.801 kg I&O - Last 24 Hours: Intake & Output 07/23/17 07/23/17 07/23/17 06:59 14:59 22:59 Intake Total 0 120 Balance 0 120 Lab Results Last 24 Hours: Laboratory Results - last 24 hr 07/23/17 07/23/17 Range/Units 08:02 08:02 WBC 13.30 H (3.98-10.04) K/mm3 RBC 4.45 (3.98-5.22) M/mm3 Hgb 12.3 (11.2-15.7) gm/L Hct 38.0 (34.1-44.9) % MCV 85.4 (79.4-94.8) fl MCH 27.6 (25.6-32.2) pg MCHC 32.4 (32.2-35.5) g/dl RDW Std Deviation 44.8 (36.4-46.3) fL Plt Count 260 (182-369) K/mm3 MPV 10.0 (9.4-12.3) fl Blood Type O POSITIVE Gel Antibody Screen Negative Med Orders - Current: Current Medications Diphenhydramine HCl (Benadryl) 25 mg IVPUSH Q6H PRN PRN Reason: Pruritis Ephedrine Sulfate (Ephedrine Sulfate) 5 mg IVPUSH ASDIRECTED PRN PRN Reason: Hypotension Fentanyl (Sublimaze) 100 mcg EPIDUR ONETIME PRN PRN Reason: Pain Last Admin: 07/23/17 12:45 Dose: 100 mcg Fentanyl/Bupivacaine HCl (Fentanyl/Bupivacaine/Ns 2 Mcg-0.125% 100 Ml) 100 ml EPIDUR ASDIRECTED ALEX Last Admin: 07/23/17 12:45 Dose: 100 ml Lactated Ringer's (Ringers, Lactated) 1,000 mls @ 40 mls/hr IV ASDIRECTED ALEX Last Admin: 07/23/17 13:22 Dose: 999 mls/hr Oxytocin/Lactated Ringer's (Pitocin In Lr 10 Units/1,000 Ml) 10 unit in 1,000 mls @ 12 mls/hr IV TITRATE ALEX; 2 MUNITS/MIN PRN Reason: Protocol Last Titration: 07/23/17 16:01 Dose: 9 munits/min, 54 mls/hr Oxytocin/Lactated Ringer's (Pitocin In Lr 10 Units/1,000 Ml) 10 unit in 1,000 mls @ 500 mls/hr IV .CONTINUOUS ALEX Nalbuphine HCl (Nubain) 10 mg IVPUSH Q2H PRN PRN Reason: Pain (moderate 4-6) Ondansetron HCl (Zofran) 4 mg IVPUSH Q4H PRN PRN Reason: Nausea/Vomiting Sodium Chloride (Saline Flush) 10 ml FLUSH ASDIRECTED PRN PRN Reason: Keep Vein Open Discontinued Medications Pseudoephedrine HCl (Sudogest) 30 mg PO ONETIME ONE Stop: 07/23/17 09:19 Last Admin: 07/23/17 09:54 Dose: 30 mg - Problem List & Annotations (1) 40 weeks gestation of SNOMED Code(s): 00201662 Code(s): Z3A.40 - 40 WEEKS GESTATION OF Status: Acute Current Visit: Yes (2) Rubella non-immune status, antepartum SNOMED Code(s): 096935824 Code(s): O99.89 - OTH DISEASES AND CONDITIONS COMPL PREG/CHLDBRTH; Z28.3 - UNDERIMMUNIZATION STATUS Status: Acute Current Visit: Yes (3) Vaginal delivery SNOMED Code(s): 312832549 Code(s): O80 - ENCOUNTER FOR FULL-TERM UNCOMPLICATED DELIVERY Status: Acute Current Visit: Yes - Problem List Review Problem List Initiated/Reviewed/Updated: Yes - My Orders Last 24 Hours: My Active Orders 07/23/17 07:27 Nalbuphine [Nubain] 10 mg IVPUSH Q2H PRN Ondansetron [Zofran] 4 mg IVPUSH Q4H PRN Sodium Chloride 0.9% [Saline Flush] 10 ml FLUSH ASDIRECTED PRN Resuscitation Status Routine 07/23/17 07:28 Patient Status [ADT] Routine Activity as Tolerated [RC] PFP Communication Order [RC] ASDIRECTED Communication Order [RC] ASDIRECTED Communication Order [RC] ASDIRECTED Monitoring [RC] INTERMITTENT Notify Provider [RC] ASDIRECTED Notify Provider [RC] PRN Up ad Lore [RC] ASDIRECTED Vaginal Exam [RC] ASDIRECTED Vital Signs [RC] ASDIRECTED Electronic Heart Tones Ext w TOCO [WOMSER] Routine Electronic Heart Tones Internal [WOMSER] Per Unit Routine Peripheral IV Insertion Adult [OM.PC] Routine 07/23/17 07:29 Heart Tones [RC] ASDIRECTED 07/23/17 07:30 Lactated Ringers [Ringers, Lactated] 1,000 ml IV ASDIRECTED Oxytocin/Lactated Ringers [Pitocin in LR 10 Units/1,000 ML] 10 unit in 1,000 ml IV .CONTINUOUS Oxytocin/Lactated Ringers [Pitocin in LR 10 Units/1,000 ML] 10 unit in 1,000 ml IV TITRATE 07/23/17 08:02 PATIENT RETYPE [BBK] Routine TYPE AND SCREEN [BBK] Routine 07/23/17 Breakfast Regular Diet [DIET] - Assessment Assessment:: 27 y/o G1 now P1001 PPD#0 from at 40 2/7 wks - Plan Plan:: * Routine cares * Encourage breast feeding * MMR prior to discharge * Discharge home in 1-2 days Brief History: [facility] LIVE . L/D Delivery Note. Patient Name: CRISTAL WHITFIELD Record Number: [id number]. Date of : Patient Status: Inpatient. Attending Provider: Maria A Watermancount Number : [id number]. Date: 07/23/17 19:28Initialization Date: 07/23/17 19:28. L & D Note. - General Info. Date of Service: 07/23/17. - Delivery Note. Labor: Induced by Oxytocin. Cervical Ripening Method: Balloon Device. Delivery Outcome: Livebirth. Delivery Method: Spontaneous Vaginal Delivery- Single. Infant Delivery Mode: Spontaneous. Presentation: Left Occiput Anterior (GILSON). Nuchal Cord: None. Anesthesia Type: Epidural. Amniotic Fluid Description: Clear. Episiotomy Type: None. Laceration: 2nd Degree, Perineal. Suture type: Vicryl. Suture size: 2-0. Placenta: Intact, Spontaneous. Cord: 3 Vessels. Estimated Blood Loss: 250. Resuscitation Needed: Yes. : Suctioned, Bulb Syringe, Stimulated, Warmed, [place] Used, Warmer Used. Score 1 min: 8. Score 5 min: 9. Delivery Comments (Free Text/Narrative): : Patient found to be complete and began pushing. With maternal pushing effort head delivered from an GILSON presentation. No nuchal cord present. With gentle downward traction the shoulders and body delivered. Infant placed on maternal abdomen. Cord clamped and cut. Cord blood obtained. Placenta allowed time to separate and expelled intact. Inspection of the perineum showed a 2nd degree laceration which was repaired with a 2-0 vicryl in the typical fashion. - Patient Data. Vitals - Most Recent: Last Vital Signs. Temp 36.3 C 07/23/17 07:28. Pulse 91 07/23/17 07:28. Resp 16 07/23/17 09: 39. BP 117/80 07/23/17 07:28. Pulse Ox. Weight - Most Recent: 94.801 kg. I& O - Last 24 Hours: Intake & Output. 07/23/1801. 06:5914:5922: 59. Intake [id number]. [id number]. Lab Results Last 24 Hours: Laboratory Results - last 24 hr. 07/23/1801/23/18Range/Units. 08:0208:02. WBC 13.30 H ( 3.98-10.04) K/mm3. RBC 4.45 (3.98-5.22) M/mm3. Hgb 12.3 (11.2-15.7) gm/L. Hct 38.0 (34.1-44.9) %. MCV 85.4 (79.4-94.8) fl. MCH 27.6 (25.6-32.2) pg. MCHC 32.4 (32.2-35.5) g/dl. RDW Std Deviation 44.8 (36.4-46.3) fL. Plt Count 260 (182-369) K/mm3. MPV 10.0 (9.4-12.3) fl. Blood Type O POSITIVE. Gel Antibody Screen Negative. Med Orders - Current: Current Medications. Diphenhydramine HCl (Benadryl) 25 mg IVPUSH Q6H PRN. PRN Reason: Pruritis. Ephedrine Sulfate (Ephedrine Sulfate) 5 mg IVPUSH ASDIRECTED PRN. PRN Reason: Hypotension. Fentanyl (Sublimaze) 100 mcg EPIDUR ONETIME PRN. PRN Reason: Pain. Last Admin: 07/23/17 12:45 Dose: 100 mcg. Fentanyl/Bupivacaine HCl ( Fentanyl/Bupivacaine/Ns 2 Mcg-0.125% 100 Ml) 100 ml EPIDUR ASDIRECTED ALEX. Last Admin: 07/23/17 12:45 Dose: 100 ml. Lactated Ringer's (Ringers, Lactated ) 1,000 mls @ 40 mls/hr IV ASDIRECTED ALEX. Last Admin: 07/23/17 13:22 Dose: 999 mls/hr. Oxytocin/Lactated Ringer's (Pitocin In Lr 10 Units/1,000 Ml) 10 unit in 1,000 mls @ 12 mls/hr IV TITRATE ALEX; 2 MUNITS/MIN. PRN Reason: Protocol. Last Titration: 07/23/17 16:01 Dose: 9 munits/min, 54 mls/hr. Oxytocin/Lactated Ringer's (Pitocin In Lr 10 Units/1,000 Ml) 10 unit in 1,000 mls @ 500 mls/hr IV .CONTINUOUS ALEX. Nalbuphine HCl (Nubain) 10 mg IVPUSH Q2H PRN. PRN Reason: Pain (moderate 4-6). Ondansetron HCl (Zofran) 4 mg IVPUSH Q4H PRN. PRN Reason: Nausea/Vomiting. Sodium Chloride (Saline Flush) 10 ml FLUSH ASDIRECTED PRN. PRN Reason: Keep Vein Open. Discontinued Medications. Pseudoephedrine HCl (Sudogest) 30 mg PO ONETIME ONE. Stop: 07/23/17 09:19. Last Admin: 07/23/17 09:54 Dose: 30 mg. - Problem List & Annotations. (1) 40 weeks gestation of . SNOMED Code(s): 76772274. Code(s): Z3A.40 - 40 WEEKS GESTATION OF Status: Acute Current Visit: Yes. (2) Rubella non-immune status, antepartum. SNOMED Code(s): 962931060. Code(s): O99.89 - OTH DISEASES AND CONDITIONS COMPL PREG/CHLDBRTH; Z28.3 - UNDERIMMUNIZATION STATUS Status: Acute Current Visit: Yes. (3) Vaginal delivery. SNOMED Code (s): 326730070. Code(s): O80 - ENCOUNTER FOR FULL-TERM UNCOMPLICATED DELIVERY Status: Acute Current Visit: Yes. - Problem List Review. Problem List Initiated/Reviewed/Updated: Yes. - My Orders. Last 24 Hours: My Active Orders. 07/23/17 07:27. Nalbuphine [Nubain] 10 mg IVPUSH Q2H PRN. Ondansetron [Zofran] 4 mg IVPUSH Q4H PRN. Sodium Chloride 0.9% [Saline Flush ] 10 ml FLUSH ASDIRECTED PRN. Resuscitation Status Routine. 07/23/17 07:28. Patient Status [ADT] Routine. Activity as Tolerated [RC] PFP. Communication Order [RC] ASDIRECTED. Communication Order [RC] ASDIRECTED. Communication Order [RC] ASDIRECTED. Monitoring [RC] INTERMITTENT. Notify Provider [RC ] ASDIRECTED. Notify Provider [RC] PRN. Up ad Lore [RC] ASDIRECTED. Vaginal Exam [RC] ASDIRECTED. Vital Signs [RC] ASDIRECTED. Electronic Heart Tones Ext w TOCO [WOMSER] Routine. Electronic Heart Tones Internal [ WOMSER] Per Unit Routine. Peripheral IV Insertion Adult [OM.PC] Routine. 07/23 07:29. Heart Tones [RC] ASDIRECTED. 07/23/17 07:30. Lactated Ringers [Ringers, Lactated] 1,000 ml IV ASDIRECTED. Oxytocin/Lactated Ringers [ Pitocin in LR 10 Units/1,000 ML] 10 unit in 1,000 ml IV .CONTINUOUS. Oxytocin/ Lactated Ringers [Pitocin in LR 10 Units/1,000 ML] 10 unit in 1,000 ml IV TITRATE. 07/23/17 08:02. PATIENT RETYPE [BBK] Routine. TYPE AND SCREEN [BBK] Routine. 07/23/17 Breakfast. Regular Diet [DIET]. - Assessment. Assessment: : 27 y/o G1 now P1001 PPD#0 from at 40 2/7 wks. - Plan. Plan:: . Routine cares. Encourage breast feeding. MMR prior to discharge. Discharge home in 1-2 days - Discharge Data Discharge Date: 07/25/17 Discharge Disposition: Home, Self-Care 01 Condition: Good - Discharge Diagnosis/Problem(s) (1) Second degree laceration of perineum, delivered, current hospitalization SNOMED Code(s): 143915812 ICD Code: O70.1 - SECOND DEGREE PERINEAL LACERATION DURING DELIVERY Status : Acute Current Visit: Yes (2) 40 weeks gestation of SNOMED Code(s): 96128533 ICD Code: Z3A.40 - 40 WEEKS GESTATION OF Status: Acute Current Visit: Yes (3) Rubella non-immune status, antepartum SNOMED Code(s): 465164866 ICD Code: O99.89 - OTH DISEASES AND CONDITIONS COMPL PREG/CHLDBRTH; Z28.3 - UNDERIMMUNIZATION STATUS Status: Acute Current Visit: Yes (4) Vaginal delivery SNOMED Code(s): 648926964 ICD Code: O80 - ENCOUNTER FOR FULL-TERM UNCOMPLICATED DELIVERY Status: Acute Current Visit: Yes (5) Born by normal vaginal delivery SNOMED Code(s): 279562373 ICD Code: O80 - ENCOUNTER FOR FULL-TERM UNCOMPLICATED DELIVERY Status: Acute Current Visit: No - Patient Summary/Data Complications: none Consults: none Hospital Course: uneventful - Patient Instructions Diet: Regular Diet as Tolerated Driving: Do Not Drive (x48 hrs) Showering/Bathing: May Shower, No Tub Bathing/Swimming Notify Provider of: Fever, Increased Pain, Swelling and Redness, Drainage, Nausea and/or Vomiting - Discharge Plan Prescriptions/Med Rec: Acyclovir 5 gm TP Q4H #1 oint...g. valACYclovir [Valtrex] 1,000 mg PO DAILY #2 tab Home Medications: Home Meds Multivit-Min/Fe Fum/FA/Vit K [Multi For Her Softgel] 1 tab PO DAILY 12/14/16 [ History] Acetaminophen [Tylenol] 650 mg PO Q4H PRN tablet 07/25/17 [Rx] Acyclovir 5 gm TP Q4H #1 oint...g. 07/25/17 [Rx] Ibuprofen [IJD: Ibuprofen] 600 mg PO Q6H PRN tablet 07/25/17 [Rx] Lanolin [Lansinoh HPA] 1 applic TOP ASDIRECTED PRN tube 07/25/17 [Rx] valACYclovir [Valtrex] 1,000 mg PO DAILY #2 tab 07/25/17 [Rx] Patient Handouts: Home Care Instructions for Mom Referrals: Maria A Waterman MD [Primary Care Provider] - (6 weeks) - Discharge Summary/Plan Comment DC Time >30 min.: No - Patient Data Vitals - Most Recent: Last Vital Signs Temp 97.6 F 07/25/17 03:33 Pulse 67 07/25/17 03:25 Resp 16 07/25/17 03:25 BP 111/54 L 07/25/17 03:25 Pulse Ox 95 07/25/17 03:25 Weight - Most Recent: 209 lb Med Orders - Current: Current Medications Acetaminophen (Tylenol) 650 mg PO Q4H PRN PRN Reason: mild pain or fever Benzocaine/Menthol (Dermoplast Pain Relief [place]) 0 gm TOP ASDIRECTED PRN PRN Reason: Perineal Comfort Measure Last Admin: 07/23/17 21:44 Dose: 1 container Docusate Sodium (Colace) 100 mg PO BID PRN PRN Reason: Constipation Last Admin: 07/25/17 05:36 Dose: 100 mg Emollient Ointment (Lansinoh Hpa) 0 gm TOP ASDIRECTED PRN PRN Reason: Sore Nipples Last Admin: 07/24/17 16:18 Dose: 1 tube Ibuprofen (Motrin) 600 mg PO Q6H PRN PRN Reason: Mild pain or fever Last Admin: 07/25/17 05:35 Dose: 600 mg Witch Olive (Tucks) 1 pad TOP ASDIRECTED PRN PRN Reason: Hemorrhoid pain Last Admin: 07/23/17 21:44 Dose: 1 container Discontinued Medications Diphenhydramine HCl (Benadryl) 25 mg IVPUSH Q6H PRN PRN Reason: Pruritis Ephedrine Sulfate (Ephedrine Sulfate) 5 mg IVPUSH ASDIRECTED PRN PRN Reason: Hypotension Fentanyl (Sublimaze) 100 mcg EPIDUR ONETIME PRN PRN Reason: Pain Last Admin: 07/23/17 12:45 Dose: 100 mcg Fentanyl/Bupivacaine HCl (Fentanyl/Bupivacaine/Ns 2 Mcg-0.125% 100 Ml) 100 ml EPIDUR ASDIRECTED ALEX Last Admin: 07/23/17 12:45 Dose: 100 ml Lactated Ringer's (Ringers, Lactated) 1,000 mls @ 40 mls/hr IV ASDIRECTED ALEX Last Admin: 07/23/17 13:22 Dose: 999 mls/hr Oxytocin/Lactated Ringer's (Pitocin In Lr 10 Units/1,000 Ml) 10 unit in 1,000 mls @ 12 mls/hr IV TITRATE ALEX; 2 MUNITS/MIN PRN Reason: Protocol Last Titration: 07/23/17 16:01 Dose: 9 munits/min, 54 mls/hr Oxytocin/Lactated Ringer's (Pitocin In Lr 10 Units/1,000 Ml) 10 unit in 1,000 mls @ 500 mls/hr IV .CONTINUOUS ALEX Measles/Mumps/Rubella Vaccine Live (M-M-R Ii Vaccine) 0.5 ml SUBCUT .ONCE ONE Stop: 07/24/17 19:33 Last Admin: 07/25/17 09:27 Dose: 0.5 ml Nalbuphine HCl (Nubain) 10 mg IVPUSH Q2H PRN PRN Reason: Pain (moderate 4-6) Ondansetron HCl (Zofran) 4 mg IVPUSH Q4H PRN PRN Reason: Nausea/Vomiting Pseudoephedrine HCl (Sudogest) 30 mg PO ONETIME ONE Stop: 07/23/17 09:19 Last Admin: 07/23/17 09:54 Dose: 30 mg Sodium Chloride (Saline Flush) 10 ml FLUSH ASDIRECTED PRN PRN Reason: Keep Vein Open *Q Meaningful Use (DIS) - VTE *Q VTE Criteria *Q: - Stroke *Q Stroke Criteria *Q: - AMI *Q AMI Criteria *Q:
--- NOTE | 2017-07-25 17:00 | PCM48HPAN ---
Post Anesthesia Note - EVALUATION WITHIN 48HRS OF ANESTHETIC Vital Signs in Normal Range: Yes Patient Participated in Evaluation: Yes Respiratory Function Stable: Yes Airway Patent: Yes Cardiovascular Function Stable: Yes Hydration Status Stable: Yes Pain Control Satisfactory: Yes Nausea and Vomiting Control Satisfactory: Yes Mental Status Recovered: Yes Pulse Rate: 67 Resp Rate: 16 Temperature: 36.4 C Blood Pressure: 111/54 - COMMENTS/OBSERVATIONS Free Text/Narrative:: Patient discharged home. No complications noted.
== END 2017-07-25 10:49 | disposition home or self-care (01) | DRG 560 ==
LOC: JD.OB 07:15 → OBSVTOIN 19:11 → JD.OB 19:11
PROVIDERS: ADMIT Obstetrics & Gynecology; ATTEND Obstetrics & Gynecology
PROC: 10E0XZZ Delivery of Products of Conception, External Approach (ICD-10-PCS; principal; 2017-07-23)
PROC: 3E033VJ Introduction of Other Hormone into Peripheral Vein, Percutaneous Approach (ICD-10-PCS; 2017-07-23)
PROC: 0HQ9XZZ Repair Perineum Skin, External Approach (ICD-10-PCS; 2017-07-23)
PROC: 00HU33Z Insertion of Infusion Device into Spinal Canal, Percutaneous Approach (ICD-10-PCS; 2017-07-23)
PROC: 3E0R3BZ Introduction of Anesthetic Agent into Spinal Canal, Percutaneous Approach (ICD-10-PCS; 2017-07-23)
PROC: 3E0234Z Introduction of Serum, Toxoid and Vaccine into Muscle, Percutaneous Approach (ICD-10-PCS; 2017-07-25)
DX: O48.0 Post-term pregnancy (principal); Z3A.40 40 weeks gestation of pregnancy; Z37.0 Single live birth; O70.1 Second degree perineal laceration during delivery; Z87.891 Personal history of nicotine dependence; Z23 Encounter for immunization
CPT/HCPCS: 36415; 51702; 59300; 59409; 85027; 86850; 86900; 86901; 90707; A9270-GY; J2590; J3010; J7120

== ENCOUNTER 2019-07-01 13:03 | Emergency (ER) | payer BC ==
[2019-07-01] MEDS ORDERED: Adenosine 6 MG/2 ML SDV ONE (13:24)
[2019-07-01] MEDS ORDERED: Adenosine 12 MG/4 ML SDV ONE (13:24)
[2019-07-01] MEDS ORDERED: Sodium Chloride 0.9% 10 ML Syringe FLUSH PRN (13:32)
[2019-07-01] MEDS ORDERED: Lactated Ringers 1,000 ML IV ONE (13:39)
[2019-07-01] MEDS ORDERED: Adenosine 6 MG/2 ML SDV IVPUSH STA (13:39)
[2019-07-01] MEDS ORDERED: Sodium Chloride 0.9% 1,000 ML IV SCH (13:45)
--- NOTE | 2019-07-01 15:15 | EDM.PDOC ---
ED HPI GENERAL MEDICAL PROBLEM - General Chief Complaint: Cardiovascular Problem Stated Complaint: SORE THROAT/DIZZY/HIGH HEART RATE Time Seen by Provider: 07/01/19 13:24 Source of Information: Reports: Patient, Family, Provider History Limitations: Reports: No Limitations - History of Present Illness INITIAL COMMENTS - FREE TEXT/NARRATIVE: The patient presents with palpitations and left sided neck pain. This all started at 10:45am this morning when she was getting ready to go to [place]. She is at 38 weeks gestation. She went to OB and they checked the baby and the baby was fine and they sent her over because her heart rate was 200. She has never had this happen before. She has no chest pain with it but she is short of breath. She has no fever, chills, cough, congestion, runny nose, dysuria or hematuria. She had no complications with this but the baby does have an issue with a kidney and she will be induced in 10 days. Onset: Sudden Duration: Hour(s): Location: Reports: Neck Quality: Reports: Pressure Severity: Moderate Improves with: Reports: None Worsens with: Reports: None Associated Symptoms: Reports: Shortness of Breath. 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: Endocrine/Metabolic History: Reports: Other (See Below) Other Endocrine/Metabolic History: thyroid nodule - Past Surgical History HEENT Surgical History: Reports: Oral Surgery Social & Family History - Family History Cardiac: Reports: [place] : Reports: Dialysis Endocrine/Metabolic: Reports: Hypothyroidism - Tobacco Use Smoking Status *Q: Former Smoker Used Tobacco, but Quit: Yes Month/Year Tobacco Last Used: 1 year - Caffeine Use Caffeine Use: Reports: None - Recreational Drug Use Recreational Drug Use: No ED ROS GENERAL - Review of Systems Review Of Systems: See Below Constitutional: Reports: No Symptoms HEENT: Reports: No Symptoms Respiratory: Reports: No Symptoms Cardiovascular: Reports: Palpitations. Denies: Chest Pain Endocrine: Reports: No Symptoms GI/Abdominal: Reports: No Symptoms : Reports: No Symptoms Musculoskeletal: Reports: Neck Pain Skin: Reports: No Symptoms Neurological: Reports: No Symptoms ED EXAM, GENERAL - Physical Exam Exam: See Below Exam Limited By: No Limitations General Appearance: Alert, No Apparent Distress Ears: Normal External Exam Nose: Normal Inspection Head: Atraumatic, Normocephalic Neck: Normal Inspection, Supple, Non-Tender Respiratory/Chest: No Respiratory Distress, Lungs Clear, Normal Breath Sounds Cardiovascular: No Edema, No Murmur, Tachycardia GI/Abdominal: Soft, Non-Tender, No Organomegaly, No Mass Extremities: Normal Inspection Neurological: Alert, Oriented, No Motor/Sensory Deficits EKG INTERPRETATION EKG Date: 07/01/19 Time: 13:25 Rhythm: Other (SVT) Rate (Beats/Min): 200 [place]: Normal P-Wave: Present QRS: Normal ST-T: Normal QT: Normal Course - Vital Signs Last Recorded V/S: Last Vital Signs Temp 97.6 F 07/01/19 13:17 Pulse 196 H 07/01/19 13:17 Resp 18 07/01/19 13:17 BP 103/77 07/01/19 13:17 Pulse Ox 99 07/01/19 13:17 - Orders/Labs/Meds Orders: Active Orders 24 hr Category Date Time Status Cardiac Monitoring [RC] . DIRECTED Care 07/01/19 13:33 Active EKG 12 Lead [EKG Documentation Completion] [RC] STAT Care 07/01/19 13:42 Active EKG Documentation Completion [RC] STAT Care 07/01/19 13:33 Active Peripheral IV Care [RC] . DIRECTED Care 07/01/19 13:33 Active CULTURE URINE [RM] Stat Lab 07/01/19 13:05 Received TSH [CHEM] Stat Lab 07/01/19 15:11 Ordered Sodium Chloride 0.9% [Normal Saline] 1,000 ml Med 07/01/19 13:45 Active IV .BOLUS Sodium Chloride 0.9% [Saline Flush] Med 07/01/19 13:32 Active 10 ml FLUSH ASDIRECTED PRN Peripheral IV Insertion Adult [OM.PC] Stat Oth 07/01/19 13:32 Ordered Medication Orders Sodium Chloride (Normal Saline) 1,000 mls @ 1,000 mls/hr IV .BOLUS ALEX Sodium Chloride (Saline Flush) 10 ml FLUSH ASDIRECTED PRN PRN Reason: Keep Vein Open Last Admin: 07/01/19 13:48 Dose: 10 ml Labs: Laboratory Tests 07/01/19 07/01/19 07/01/19 Range/Units 13:05 13:29 13:29 WBC 15.34 H (3.98-10.04) K/mm3 RBC 4.43 (3.98-5.22) M/mm3 Hgb 12.3 (11.2-15.7) gm/dl Hct 37.8 (34.1-44.9) % MCV 85.3 (79.4-94.8) fl MCH 27.8 (25.6-32.2) pg MCHC 32.5 (32.2-35.5) g/dl RDW Std Deviation 46.0 (36.4-46.3) fL Plt Count 259 (182-369) K/mm3 MPV 9.9 (9.4-12.3) fl Neut % (Auto) 72.9 H (34.0-71.1) % Lymph % (Auto) 17.7 L (19.3-51.7) % Desha % (Auto) 7.8 (4.7-12.5) % Eos % (Auto) 1.1 (0.7-5.8) Baso % (Auto) 0.1 (0.1-1.2) % Neut # (Auto) 11.19 H (1.56-6.13) K/mm3 Lymph # (Auto) 2.71 (1.18-3.74) K/mm3 Desha # (Auto) 1.19 H (0.24-0.36) K/mm3 Eos # (Auto) 0.17 (0.04-0.36) K/mm3 Baso # (Auto) 0.02 (0.01-0.08) K/mm3 Manual Slide Review Abnormal smear Sodium 136 (136-145) mEq/L Potassium 3.8 (3.5-5.1) mEq/L Chloride 103 (98-107) mEq/L Carbon Dioxide 20 L (21-32) mEq/L Anion Gap 16.8 H (5-15) BUN 8 (7-18) mg/dL Creatinine 0.7 (0.55-1.02) mg/dL Est Cr Clr Drug Dosing 117.47 mL/min Estimated GFR (MDRD) > 60 (>60) mL/min BUN/Creatinine Ratio 11.4 L (14-18) Glucose 144 H (74-106) mg/dL Calcium 8.9 (8.5-10.1) mg/dL Total Bilirubin 0.2 (0.2-1.0) mg/dL AST 10 L (15-37) U/L ALT 23 (14-59) U/L Alkaline Phosphatase 125 H (46-116) U/L Troponin I 0.044 (0.00-0.056) ng/mL Total Protein 7.3 (6.4-8.2) g/dl Albumin 2.8 L (3.4-5.0) g/dl Globulin 4.5 gm/dL Albumin/Globulin Ratio 0.6 L (1-2) Urine Color Yellow (Yellow) Urine Appearance Clear (Clear) Urine pH 7.0 (5.0-8.0) Ur Specific [place] 1.015 (1.005-1.030) Urine Protein Negative (Negative) Urine Glucose (UA) Negative (Negative) Urine Ketones Negative (Negative) Urine Occult Blood Negative (Negative) Urine Nitrite Negative (Negative) Urine Bilirubin Negative (Negative) Urine Urobilinogen 0.2 (0.2-1.0) Ur Leukocyte Esterase Trace H (Negative) Urine RBC Not seen (0-5) /hpf Urine WBC 0-5 (0-5) /hpf Ur Epithelial Cells 5-10 H (0-5) /hpf Urine Bacteria Few (FEW) /hpf Urine Mucus Few (FEW) /hpf Meds: Medications Generic Name Dose Route Start Last Admin Trade Name Freq PRN Reason Stop Dose Admin Sodium Chloride 1,000 mls @ 1,000 mls/hr 07/01/19 13:45 Normal Saline IV .BOLUS ALEX Sodium Chloride 10 ml 07/01/19 13:32 07/01/19 13:48 Saline Flush FLUSH 10 ml ASDIRECTED PRN Administration Keep Vein Open Discontinued Medications Generic Name Dose Route Start Last Admin Trade Name Freq PRN Reason Stop Dose Admin Adenosine Confirm 07/01/19 13:24 07/01/19 13:42 Adenocard Administered 07/01/19 13:25 Not Given Dose 6 mg .ROUTE .STK-MED ONE Adenosine Confirm 07/01/19 13:24 07/01/19 13:41 Adenocard Administered 07/01/19 13:25 Not Given Dose 12 mg .ROUTE .STK-MED ONE Adenosine 6 mg 07/01/19 13:39 07/01/19 13:25 Adenocard IVPUSH 07/01/19 13:40 6 mg NOW STA Administration Lactated Ringer's 1,000 mls @ 999 mls/hr 07/01/19 13:39 07/01/19 13:35 Ringers, Lactated IV 07/01/19 14:39 999 mls/hr .BOLUS ONE Administration - Re-Assessments/Exams Free Text/Narrative Re-Assessment/Exam: 07/01/19 15:21 Her heart rate was 200 when she arrived. I had an IV placed and EKG and while that was being placed, I tried vagal maneuvers that did not help. I then gave her adenosine 6mg IV and that did convert her to a sinus tachcyardia and her EKG showed no acute changes. Her WBC was elevated at 15.34. Her anion gap was elevated at 16.8. Her glucose was 144. Her alk phos was elevated at 125. Her troponin was normal at 0.044. Her UA showed no UTI. She is doing much better. I called Dr Hu from [place] [facility] and he did not recommend any medicines at this time. He can see her in a couple months. Departure - Departure Time of Disposition: 15:35 Disposition: Home, Self-Care 01 Condition: Good Clinical Impression: SVT (supraventricular tachycardia) Referrals: Maria A Waterman MD [Primary Care Provider] - 2 Days Forms: ED Department Discharge Additional Instructions: Drink plenty of fluids. Avoid all caffeine. Please return if you are worse. Sepsis Event Note - Evaluation Sepsis Screening Result: No Definite Risk - Focused Exam Vital Signs: Vital Signs Temp Pulse Resp BP Pulse Ox 07/01/19 13:17 97.6 F 196 H 18 103/77 99 Date Exam was Performed: 07/01/19 Time Exam was Performed: 15:27 - My Orders Last 24 Hours: My Active Orders 07/01/19 13:05 CULTURE URINE [RM] Stat 07/01/19 13:32 Sodium Chloride 0.9% [Saline Flush] 10 ml FLUSH ASDIRECTED PRN Peripheral IV Insertion Adult [OM.PC] Stat 07/01/19 13:33 Cardiac Monitoring [RC] . DIRECTED EKG Documentation Completion [RC] STAT Peripheral IV Care [RC] . DIRECTED 07/01/19 13:42 EKG 12 Lead [EKG Documentation Completion] [RC] STAT 07/01/19 13:45 Sodium Chloride 0.9% [Normal Saline] 1,000 ml IV .BOLUS 07/01/19 15:11 TSH [CHEM] Stat - Assessment/Plan Last 24 Hours: My Active Orders 07/01/19 13:05 CULTURE URINE [RM] Stat 07/01/19 13:32 Sodium Chloride 0.9% [Saline Flush] 10 ml FLUSH ASDIRECTED PRN Peripheral IV Insertion Adult [OM.PC] Stat 07/01/19 13:33 Cardiac Monitoring [RC] . DIRECTED EKG Documentation Completion [RC] STAT Peripheral IV Care [RC] . DIRECTED 07/01/19 13:42 EKG 12 Lead [EKG Documentation Completion] [RC] STAT 07/01/19 13:45 Sodium Chloride 0.9% [Normal Saline] 1,000 ml IV .BOLUS 07/01/19 15:11 TSH [CHEM] Stat
[2019-07-01 15:51] VITALS: BP 100/67; PULSE 105
== END 2019-07-01 15:50 | disposition home or self-care (01) ==
LOC: JD.ED 13:03
DX: I47.1 Supraventricular tachycardia (principal); Z87.891 Personal history of nicotine dependence; E04.1 Nontoxic single thyroid nodule; Z79.899 Other long term (current) drug therapy
CPT/HCPCS: 36415; 80053; 81001; 84443; 84484; 85025; 87086; 93005; 96361; 96374; 99285; J0153; J7120; 93010; 99284

== ENCOUNTER 2019-07-10 07:29 | Inpatient (IN) | payer BC ==
[~2019-07-10 07:29] MED LIST: Bupivacaine 0.25% 10 ML SDV ONE
[2019-07-10] MEDS ORDERED: Nalbuphine 10 MG/ML Syringe IVPUSH PRN (07:31)
[2019-07-10] MEDS ORDERED: Sodium Chloride 0.9% 10 ML Syringe FLUSH PRN (07:31)
[2019-07-10] MEDS ORDERED: Ondansetron 4 MG/2 ML SDV IVPUSH PRN (07:31)
--- NOTE | 2019-07-10 07:36 | PCM.LDHP ---
L&D History of Present Illness - General Date of Service: 07/10/19 Admit Problem/Dx: Patient Status Order with Admit Dx/Problem 07/10/19 07:31 Patient Status [ADT] Routine Admission Diagnosis/Problem Admission Diagnosis/Problem Normal Source of Information: Patient History Limitations: Reports: No Limitations - History of Present Illness Introduction:: Patient is a 29-year-old at 39-3/7 weeks gestation who presents for induction of labor for findings of a unilateral multicystic kidney of her baby. Feeling well today. No contractions or signs of labor. 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): Endocrine/Metabolic History: Reports: Other (See Below) Other Endocrine/Metabolic History: thyroid nodule - Past Surgical History HEENT Surgical History: Reports: Oral Surgery (tooth extractions) Social & Family History - Family History Cardiac: Reports: [place] : Reports: Dialysis Endocrine/Metabolic: Reports: Hypothyroidism - Tobacco Use Smoking Status *Q: Former Smoker - Caffeine Use Caffeine Use: Reports: None - Alcohol Use Alcohol Use History: No - Recreational Drug Use Recreational Drug Use: No Drug Use in Last 12 Months: No H&P Review of Systems - Review of Systems: Review Of Systems: See Below General: Reports: No Symptoms Pulmonary: Reports: No Symptoms Cardiovascular: Reports: No Symptoms Gastrointestinal: Reports: No Symptoms Genitourinary: Reports: No Symptoms Musculoskeletal: Reports: No Symptoms Psychiatric: Reports: No Symptoms Neurological: Reports: No Symptoms L&D Exam - Exam Exam: See Below - OB Specific Contraction Intensity: Irritability Movement: Active Heart Tones: Present Heart Tones per Min: 140 Heart Rate (FHR) Variability: Moderate (6-25 bmp) Presentation: Vertex - Perez Score Perez Score Cervix Position: Posterior Perez Score Consistency: Soft Perez Score Effacement: 51-70% Perez Score Dilation: 1-2 cm Perez Score Infant's Station: -2 Perze Score Total: 6 - Exam General: Alert, Oriented, Cooperative Lungs: Clear to Auscultation, Normal Respiratory Effort Cardiovascular: Regular Rate, Regular Rhythm GI/Abdominal Exam: Soft, Non-Tender Genitourinary: Normal external exam Extremities: Normal Inspection Skin: Warm, Dry, Intact - Patient Data Result Diagrams: 07/10/19 07:45 - Problem List (1) 39 weeks gestation of SNOMED Code(s): 85428001 ICD Code: Z3A.39 - 39 WEEKS GESTATION OF Status: Acute Current Visit: Yes (2) 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, antepartum SNOMED Code(s): 079323805, 623731139, 986717313 ICD Code: O35.8XX0 - MATERNAL CARE FOR OTH ABNORMALITY AND DAMAGE, UNSP Status: Acute Current Visit: Yes Qualifiers: Fetus number: single or unspecified fetus Qualified Code(s): O35.8XX0 - Maternal care for other (suspected) abnormality and damage, not applicable or unspecified (3) Bilobed placenta SNOMED Code(s): 59652648, 16566904 ICD Code: O43.899 - OTHER PLACENTAL DISORDERS, UNSPECIFIED TRIMESTER Status : Acute Current Visit: Yes Problem List Initiated/Reviewed/Updated: Yes Orders Last 24hrs: Active Orders 24 hr Category Date Time Status Patient Status [ADT] Routine ADT 07/10/19 07:31 Ordered Activity as Tolerated [RC] PFP Care 07/10/19 07:31 Ordered Communication Order [RC] ASDIRECTED Care 07/10/19 07:31 Ordered Communication Order [RC] ASDIRECTED Care 07/10/19 07:31 Ordered Communication Order [RC] ASDIRECTED Care 07/10/19 07:31 Ordered Heart Tones [RC] ASDIRECTED Care 07/10/19 07:31 Ordered Monitoring [RC] INTERMITTENT Care 07/10/19 07:31 Ordered Non Stress Test [RC] PER UNIT ROUTINE Care 07/10/19 07:31 Ordered Notify Provider [RC] ASDIRECTED Care 07/10/19 07:31 Ordered Notify Provider [RC] PRN Care 07/10/19 07:31 Ordered Peripheral IV Care [RC] . DIRECTED Care 07/10/19 07:31 Ordered Up ad Lore [RC] ASDIRECTED Care 07/10/19 07:32 Ordered Vaginal Exam [RC] ASDIRECTED Care 07/10/19 07:31 Ordered Vital Signs [RC] ASDIRECTED Care 07/10/19 07:31 Ordered Regular Diet [DIET] Diet 07/10/19 Breakfast Ordered CBC W/O DIFF,HEMOGRAM [HEME] Routine Lab 07/10/19 07:31 Ordered RAPID PLASMA REAGIN,RPR [CHEM] Routine Lab 07/10/19 07:31 Ordered TYPE AND SCREEN [BBK] Routine Lab 07/10/19 07:31 Ordered Lactated Ringers [Ringers, Lactated] 1,000 ml Med 07/10/19 07:45 Ordered IV ASDIRECTED Levothyroxine Med 07/10/19 09:00 Ordered 75 mcg PO DAILY Nalbuphine [Nubain] Med 07/10/19 07:31 Ordered 10 mg IVPUSH Q2H PRN Ondansetron [Zofran] Med 07/10/19 07:31 Ordered 4 mg IVPUSH Q4H PRN Oxytocin/Lactated Ringers [Pitocin in LR 10 Units/1,000 Med 07/10/19 07:45 Ordered ML] 10 unit in 1,000 ml IV .CONTINUOUS Oxytocin/Lactated Ringers [Pitocin in LR 10 Units/1,000 Med 07/10/19 07:45 Ordered ML] 10 unit in 1,000 ml IV TITRATE Sodium Chloride 0.9% [Saline Flush] Med 07/10/19 07:31 Ordered 10 ml FLUSH ASDIRECTED PRN Electronic Heart Tones Ext w TOCO [WOMSER] Oth 07/10/19 07:31 Ordered Routine Electronic Heart Tones Internal [WOMSER] Per Unit Oth 07/10/19 07:31 Ordered Routine Peripheral IV Insertion Adult [OM.PC] Routine Oth 07/10/19 07:31 Ordered Resuscitation Status Routine Resus Stat 07/10/19 07:31 Ordered Medication Orders Lactated Ringer's (Ringers, Lactated) 1,000 mls @ 40 mls/hr IV ASDIRECTED ALEX Oxytocin/Lactated Ringer's (Pitocin In Lr 10 Units/1,000 Ml) 10 unit in 1,000 mls @ 12 mls/hr IV TITRATE ALEX; Protocol Oxytocin/Lactated Ringer's (Pitocin In Lr 10 Units/1,000 Ml) 10 unit in 1,000 mls @ 500 mls/hr IV .CONTINUOUS ALEX Levothyroxine Sodium (Levothyroxine) 75 mcg PO DAILY ALEX Nalbuphine HCl (Nubain) 10 mg IVPUSH Q2H PRN PRN Reason: Pain Ondansetron HCl (Zofran) 4 mg IVPUSH Q4H PRN PRN Reason: Nausea/Vomiting Sodium Chloride (Saline Flush) 10 ml FLUSH ASDIRECTED PRN PRN Reason: Keep Vein Open Assessment/Plan Comment:: 29 y/o at 39 3/7 wks presents for IOL * Labs to be done * GBS negative * Pitocin for IOL. AROM when able * Pain management per patient preference * Anticipate
[2019-07-10] MEDS ORDERED: Bupivacaine/fentaNYL/NS 100 ML Bag EPIDUR PRN (07:37)
[2019-07-10] MEDS ORDERED: fentaNYL 100 MCG/2 ML SDV EPIDUR PRN (07:37)
[2019-07-10] MEDS ORDERED: ePHEDrine 50 MG/ML SDV IVPUSH PRN (07:37)
[2019-07-10] MEDS ORDERED: diphenhydrAMINE 50 MG/ML SDV IVPUSH PRN (07:37)
[2019-07-10] MEDS ORDERED: Oxytocin/Lactated Ringers 10 UNIT/1,000 ML BAG IV SCH (07:45)
[2019-07-10] MEDS: Lactated Ringers 1,000 ML IV SCH ×2 (08:19→14:36)
[2019-07-10] MEDS: Oxytocin/Lactated Ringers 10 UNIT/1,000 ML BAG IV SCH ×2 (08:19→20:57)
[2019-07-10] MEDS: Levothyroxine 75 MCG Tab PO SCH (11:37)
--- NOTE | 2019-07-10 12:49 | PCM.PNLD ---
Labor Progress Note - VS & Meds Vital Signs: Last Vital Signs Temp 36.3 C 07/10/19 08:00 Pulse 78 07/10/19 08:00 Resp 18 07/10/19 08:00 BP 128/71 07/10/19 08:00 Pulse Ox 98 07/10/19 08:00 Active Medications: Current Medications Diphenhydramine HCl (Benadryl) 25 mg IVPUSH Q6H PRN PRN Reason: Itching Ephedrine Sulfate (Ephedrine Sulfate) 5 mg IVPUSH ASDIRECTED PRN PRN Reason: HYPOTENTSION Fentanyl (Sublimaze) 100 mcg EPIDUR Q3H PRN PRN Reason: Pain Fentanyl/Bupivacaine HCl (Fentanyl/Bupivacaine/Ns 2 Mcg-0.125% 100 Ml) 100 ml EPIDUR CONTINUOUS PRN PRN Reason: PAIN Lactated Ringer's (Ringers, Lactated) 1,000 mls @ 40 mls/hr IV ASDIRECTED ALEX Last Admin: 07/10/19 08:19 Dose: 40 mls/hr Oxytocin/Lactated Ringer's (Pitocin In Lr 10 Units/1,000 Ml) 10 unit in 1,000 mls @ 12 mls/hr IV TITRATE ALEX; Protocol Last Admin: 07/10/19 08:19 Dose: 2 munits/min, 12 mls/hr Oxytocin/Lactated Ringer's (Pitocin In Lr 10 Units/1,000 Ml) 10 unit in 1,000 mls @ 500 mls/hr IV .CONTINUOUS ALEX Levothyroxine Sodium (Levothyroxine) 75 mcg PO DAILY ALEX Last Admin: 07/10/19 11:37 Dose: Not Given Ondansetron HCl (Zofran) 4 mg IVPUSH Q4H PRN PRN Reason: Nausea/Vomiting Sodium Chloride (Saline Flush) 10 ml FLUSH ASDIRECTED PRN PRN Reason: Keep Vein Open Discontinued Medications Nalbuphine HCl (Nubain) 10 mg IVPUSH Q2H PRN PRN Reason: Pain - Uterine Contractions Uterine Monitoring Mode: External [place]ahan Contraction Intensity: Mild Uterine Resting Tone: Soft - Monitoring Monitor Mode: External Ultrasound Heart Rate (FHR) Baseline: 135 Heart Rate (FHR) Variability: Moderate (6-25 bmp) Accelerations: Present, 15x15 Decelerations: None Strip Review: Category I - Vaginal Exam Dilation (cm): 1-2 Effacement (Percent): 50 Station: -2 Cervical Position: Posterior - Labor Progress (Free Text) Labor Progress: Doing well. Feeling contractions mildly. Exam similar to this AM. AROM performed with release of large amount of clear fluid. Continue present management otherwise
--- NOTE | 2019-07-10 14:59 | PCM.PREANE ---
Preanesthetic Assessment - Procedure Proposed Procedure: epidural - Anesthesia/Transfusion/Family Hx Anesthesia History: Prior Anesthesia Without Reaction Family History of Anesthesia Reaction: No Transfusion History: No Prior Transfusion(s) - Review of Systems General: No Symptoms Pulmonary: No Symptoms Cardiovascular: No Symptoms Gastrointestinal: Abdominal Pain (labor) Neurological: No Symptoms Other: Reports: None - Physical Assessment Vital Signs: Last Vital Signs Temp 36.3 C 07/10/19 08:00 Pulse 78 07/10/19 08:00 Resp 18 07/10/19 08:00 BP 128/71 07/10/19 08:00 Pulse Ox 98 07/10/19 08:00 Height: 1.73 m Weight: 96.343 kg ASA Class: 2 Mental Status: Alert & Oriented x3 Airway Class: Mallampati = 1 Dentition: Reports: Normal Dentition Thyro-Mental Finger Breadths: 3 Mouth Opening Finger Breadths: 3 ROM/Head Extension: Full Lungs: Clear to Auscultation, Normal Respiratory Effort Cardiovascular: Regular Rate, Regular Rhythm - Lab Values: Laboratory Last Values WBC 11.35 K/mm3 (3.98-10.04) H 07/10/19 07:45 RBC 4.38 M/mm3 (3.98-5.22) 07/10/19 07:45 Hgb 11.8 gm/dl (11.2-15.7) 07/10/19 07:45 Hct 37.3 % (34.1-44.9) 07/10/19 07:45 MCV 85.2 fl (79.4-94.8) 07/10/19 07:45 MCH 26.9 pg (25.6-32.2) 07/10/19 07:45 MCHC 31.6 g/dl (32.2-35.5) L 07/10/19 07:45 RDW Std Deviation 46.3 fL (36.4-46.3) 07/10/19 07:45 Plt Count 278 K/mm3 (182-369) 07/10/19 07:45 MPV 9.8 fl (9.4-12.3) 07/10/19 07:45 Blood Type O POSITIVE 07/10/19 07:45 Gel Antibody Screen Negative 07/10/19 07:45 - Allergies Allergies/Adverse Reactions: Allergies Allergy/AdvReac Type Severity Reaction Status Date / Time No Known Allergies Allergy Verified 12/14/16 00:22 - Anesthesia Plan Pre-Op Medication Ordered: None - Acknowledgements Anesthesia Type Planned: Epidural Pt an Appropriate Candidate for the Planned Anesthesia: Yes Alternatives and Risks of Anesthesia Discussed w Pt/Guardian: Yes Pt/Guardian Understands and Agrees with Anesthesia Plan: Yes PreAnesthesia Questionnaire - Past Health History Medical/Surgical History: Denies Medical/Surgical History HEENT History: Reports: None Cardiovascular History: Reports: Other (See Below) (Episode of SVT) Other Cardiovascular History: One episode of SVT during Gastrointestinal History: Reports: 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: Endocrine/Metabolic History: Reports: Other (See Below) Other Endocrine/Metabolic History: thyroid nodule - Past Surgical History HEENT Surgical History: Reports: Oral Surgery (tooth extractions) - SUBSTANCE USE Smoking Status *Q: Former Smoker Tobacco Use Within Last Twelve Months: No Recreational Drug Use History: No - HOME MEDS Home Medications: Home Meds Levothyroxine 1 tab PO DAILY 07/01/19 [History] No115/Iron/Folic Acid [ 19 Chewable Tablet] 1 tab PO DAILY 06/19 [History] - CURRENT (IN HOUSE) MEDS Current Meds: Current Medications Diphenhydramine HCl (Benadryl) 25 mg IVPUSH Q6H PRN PRN Reason: Itching Ephedrine Sulfate (Ephedrine Sulfate) 5 mg IVPUSH ASDIRECTED PRN PRN Reason: HYPOTENTSION Fentanyl (Sublimaze) 100 mcg EPIDUR Q3H PRN PRN Reason: Pain Last Admin: 07/10/19 14:35 Dose: 100 mcg Fentanyl/Bupivacaine HCl (Fentanyl/Bupivacaine/Ns 2 Mcg-0.125% 100 Ml) 100 ml EPIDUR CONTINUOUS PRN PRN Reason: PAIN Last Admin: 07/10/19 14:35 Dose: 100 ml Lactated Ringer's (Ringers, Lactated) 1,000 mls @ 40 mls/hr IV ASDIRECTED ALEX Last Admin: 07/10/19 14:36 Dose: 40 mls/hr Oxytocin/Lactated Ringer's (Pitocin In Lr 10 Units/1,000 Ml) 10 unit in 1,000 mls @ 12 mls/hr IV TITRATE ALEX; Protocol Last Admin: 07/10/19 08:19 Dose: 2 munits/min, 12 mls/hr Oxytocin/Lactated Ringer's (Pitocin In Lr 10 Units/1,000 Ml) 10 unit in 1,000 mls @ 500 mls/hr IV .CONTINUOUS ALEX Levothyroxine Sodium (Levothyroxine) 75 mcg PO DAILY [facility] Last Admin: 07/10/19 11:37 Dose: Not Given Ondansetron HCl (Zofran) 4 mg IVPUSH Q4H PRN PRN Reason: Nausea/Vomiting Sodium Chloride (Saline Flush) 10 ml FLUSH ASDIRECTED PRN PRN Reason: Keep Vein Open Discontinued Medications Nalbuphine HCl (Nubain) 10 mg IVPUSH Q2H PRN PRN Reason: Pain
[2019-07-10] MEDS ORDERED: Calcium Carbonate 500 MG Tab.Chew PO PRN (20:15)
--- NOTE | 2019-07-10 22:47 | PCM.DEL ---
L & D Note - General Info Date of Service: 07/10/19 - Delivery Note Labor: Induced by ARM Cervical Ripening Method: Oxytocin Delivery Outcome: Livebirth Infant Delivery Method: Spontaneous Vaginal Delivery-Single Delivery Mode: Spontaneous Presentation: Left Occiput Anterior (GILSON) Nuchal Cord: None Anesthesia Type: Epidural Amniotic Fluid Description: Clear Episiotomy Type: None Laceration: None Placenta: Intact, Spontaneous Cord: 3 Vessels Estimated Blood Loss: 200 Resuscitation Needed: Yes [place]: Bulb Syringe, Stimulated, Warmed, [place] Used, Warmer Used Delivery Comments (Free Text/Narrative):: Patient found to be complete and began pushing. With maternal pushing effort head delivered from an GILSON presentation. No nuchal cord present. With gentle downward traction the shoulders and body delivered. Infant placed on maternal abdomen. Cord clamped and cut. Cord blood obtained. Placenta allowed time to separate and expelled intact. It was carefully inspected given bilobed appearance on ultrasound. This was confirmed on visual inspection as well. 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, antepartum SNOMED Code(s): 355713896, 622090263, 171243899 Code(s): O35.8XX0 - MATERNAL CARE FOR OTH ABNORMALITY AND DAMAGE, UNSP Status: Acute Current Visit: Yes Qualifiers: Fetus number: single or unspecified fetus Qualified Code(s): O35.8XX0 - Maternal care for other (suspected) abnormality and damage, not applicable or unspecified (3) Bilobed placenta SNOMED Code(s): 31204205, 05597155 Code(s): O43.899 - OTHER PLACENTAL DISORDERS, UNSPECIFIED TRIMESTER Status : Acute Current Visit: Yes (4) Vaginal delivery SNOMED Code(s): 347148436 Code(s): O80 - ENCOUNTER FOR FULL-TERM UNCOMPLICATED DELIVERY Status: Acute Current Visit: Yes - Problem List Review Problem List Initiated/Reviewed/Updated: Yes - My Orders Last 24 Hours: My Active Orders 07/10/19 07:31 Patient Status [ADT] Routine Activity as Tolerated [RC] PFP Communication Order [RC] ASDIRECTED Communication Order [RC] ASDIRECTED Communication Order [RC] ASDIRECTED Heart Tones [RC] ASDIRECTED Monitoring [RC] INTERMITTENT Notify Provider [RC] ASDIRECTED Notify Provider [RC] PRN Ondansetron [Zofran] 4 mg IVPUSH Q4H PRN Sodium Chloride 0.9% [Saline Flush] 10 ml FLUSH ASDIRECTED PRN Electronic Heart Tones Ext w TOCO [WOMSER] Routine Electronic Heart Tones Internal [WOMSER] Per Unit Routine Peripheral IV Insertion Adult [OM.PC] Routine Resuscitation Status Routine 07/10/19 07:32 [place] [RC] ASDIRECTED 07/10/19 07:45 RAPID PLASMA REAGIN,RPR [CHEM] Routine Lactated Ringers [Ringers, Lactated] 1,000 ml IV ASDIRECTED Oxytocin/Lactated Ringers [Pitocin in LR 10 Units/1,000 ML] 10 unit in 1,000 ml IV .CONTINUOUS Oxytocin/Lactated Ringers [Pitocin in LR 10 Units/1,000 ML] 10 unit in 1,000 ml IV TITRATE 07/10/19 09:00 Levothyroxine 75 mcg PO DAILY 07/10/19 20:15 Calcium Carbonate [Tums] 1,000 mg PO Q2H PRN 07/10/19 22:45 Patient Status Manage Transfer [TRANSFER] Routine 07/10/19 Breakfast Regular Diet [DIET] - Assessment Assessment:: PPD#0 from - Plan Plan:: * Routine cares * breast feeding * Discharge home in 2 days
[2019-07-10] MEDS ORDERED: Acetaminophen 325 MG Tab PO PRN (23:52)
[2019-07-10] MEDS ORDERED: Benzocaine/Menthol 20%-0.5% Spray 56 GM Canister TOP PRN (23:52)
[2019-07-10] MEDS ORDERED: Docusate Sodium 100 MG Cap PO PRN (23:52)
[2019-07-10] MEDS ORDERED: Witch Hazel Medicated Pads 40/Jar TOP PRN (23:52)
[2019-07-11] MEDS: Ibuprofen 600 MG Tab PO PRN ×3 (00:21→18:10)
--- NOTE | 2019-07-11 06:54 | PCM.PNPP ---
- General Info Date of Service: 07/11/19 Functional Status: Reports: Pain Controlled, Tolerating Diet, Ambulating, Urinating - Review of Systems General: Reports: No Symptoms Pulmonary: Reports: No Symptoms Cardiovascular: Reports: No Symptoms Gastrointestinal: Reports: No Symptoms Genitourinary: Reports: No Symptoms Musculoskeletal: Reports: Back Pain (improved since last night) Neurological: Reports: No Symptoms - Patient Data Vital Signs - Most Recent: Last Vital Signs Temp 36.3 C 07/10/19 08:00 Pulse 78 07/10/19 08:00 Resp 18 07/10/19 08:00 BP 128/71 07/10/19 08:00 Pulse Ox 98 07/10/19 08:00 Weight - Most Recent: 96.343 kg I&O - Last 24 Hours: Intake & Output 07/10/19 07/10/19 07/11/19 14:59 22:59 06:59 Intake Total 60 120 Balance 60 120 Lab Results - Last 24 Hours: Laboratory Results - last 24 hr 07/10/19 07/10/19 07/10/19 Range/Units 07:45 07:45 07:45 WBC 11.35 H (3.98-10.04) K/mm3 RBC 4.38 (3.98-5.22) M/mm3 Hgb 11.8 (11.2-15.7) gm/dl Hct 37.3 (34.1-44.9) % MCV 85.2 (79.4-94.8) fl MCH 26.9 (25.6-32.2) pg MCHC 31.6 L (32.2-35.5) g/dl RDW Std Deviation 46.3 (36.4-46.3) fL Plt Count 278 (182-369) K/mm3 MPV 9.8 (9.4-12.3) fl RPR Non-reactive (NONREACTIVE) Blood Type O POSITIVE Gel Antibody Screen Negative Med Orders - Current: Current Medications Acetaminophen (Tylenol) 650 mg PO Q4H PRN PRN Reason: mild pain or fever Benzocaine/Menthol (Dermoplast Pain Relief [place]) 0 gm TOP ASDIRECTED PRN PRN Reason: Perineal Comfort Measure Last Admin: 07/11/19 00:21 Dose: 1 canister Docusate Sodium (Colace) 100 mg PO BID PRN PRN Reason: Constipation Last Admin: 07/11/19 04:57 Dose: 100 mg Ibuprofen (Motrin) 600 mg PO Q4H PRN PRN Reason: Mild pain or fever Last Admin: 07/11/19 04:57 Dose: 600 mg Levothyroxine Sodium (Levothyroxine) 75 mcg PO DAILY ALEX Last Admin: 07/10/19 11:37 Dose: Not Given Dary Ramosel (Tucks) 1 pad TOP ASDIRECTED PRN PRN Reason: Perineal Comfort Measure Last Admin: 07/11/19 00:21 Dose: 1 jar Discontinued Medications Calcium Carbonate/Glycine (Tums) 1,000 mg PO Q2H PRN PRN Reason: Indigestion Last Admin: 07/10/19 20:57 Dose: 1,000 mg Diphenhydramine HCl (Benadryl) 25 mg IVPUSH Q6H PRN PRN Reason: Itching Ephedrine Sulfate (Ephedrine Sulfate) 5 mg IVPUSH ASDIRECTED PRN PRN Reason: HYPOTENTSION Fentanyl (Sublimaze) 100 mcg EPIDUR Q3H PRN PRN Reason: Pain Last Admin: 07/10/19 14:35 Dose: 100 mcg Fentanyl/Bupivacaine HCl (Fentanyl/Bupivacaine/Ns 2 Mcg-0.125% 100 Ml) 100 ml EPIDUR CONTINUOUS PRN PRN Reason: PAIN Last Admin: 07/10/19 14:35 Dose: 100 ml Lactated Ringer's (Ringers, Lactated) 1,000 mls @ 40 mls/hr IV ASDIRECTED ALEX Last Admin: 07/10/19 14:36 Dose: 40 mls/hr Oxytocin/Lactated Ringer's (Pitocin In Lr 10 Units/1,000 Ml) 10 unit in 1,000 mls @ 12 mls/hr IV TITRATE ALEX; Protocol Last Titration: 07/10/19 21:35 Dose: 23 munits/min, 138 mls/hr Oxytocin/Lactated Ringer's (Pitocin In Lr 10 Units/1,000 Ml) 10 unit in 1,000 mls @ 500 mls/hr IV .CONTINUOUS ALEX Nalbuphine HCl (Nubain) 10 mg IVPUSH Q2H PRN PRN Reason: Pain Ondansetron HCl (Zofran) 4 mg IVPUSH Q4H PRN PRN Reason: Nausea/Vomiting Sodium Chloride (Saline Flush) 10 ml FLUSH ASDIRECTED PRN PRN Reason: Keep Vein Open - Infant Interaction Infant Disposition, : [place] in Room with Family Interaction: Holding Infant Feeding: Attempted ; Nursed Fair/Poor Support Person: - Recovery Exam Fundal Tone: Firm Fundal Level: 2 Fingerbreadths Below Umbilicus Fundal Placement: Midline Lochia Amount: Small Perineum Description: Intact, Minimal Bruising/Swelling Episiotomy/Laceration: None Bladder Status: Voiding Urinary Elimination: Voided - Exam General: Alert, Oriented, Cooperative GI/Abdominal Exam: Soft, Non-Tender Extremities: Normal Inspection Skin: Warm, Dry, Intact - Problem List & Annotations (1) 39 weeks gestation of SNOMED Code(s): 76690075 Code(s): Z3A.39 - 39 WEEKS GESTATION OF Status: Acute Current Visit: Yes (2) 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, antepartum SNOMED Code(s): 689422024, 796997689, 259111284 Code(s): O35.8XX0 - MATERNAL CARE FOR OTH ABNORMALITY AND DAMAGE, UNSP Status: Acute Current Visit: Yes Qualifiers: Fetus number: single or unspecified fetus Qualified Code(s): O35.8XX0 - Maternal care for other (suspected) abnormality and damage, not applicable or unspecified (3) Bilobed placenta SNOMED Code(s): 76650612, 11971441 Code(s): O43.899 - OTHER PLACENTAL DISORDERS, UNSPECIFIED TRIMESTER Status : Acute Current Visit: Yes (4) Vaginal delivery SNOMED Code(s): 023555552 Code(s): O80 - ENCOUNTER FOR FULL-TERM UNCOMPLICATED DELIVERY Status: Acute Current Visit: Yes - Problem List Review Problem List Initiated/Reviewed/Updated: Yes - My Orders Last 24 Hours: My Active Orders 07/10/19 07:31 Heart Tones [RC] ASDIRECTED Monitoring [RC] INTERMITTENT Resuscitation Status Routine 07/10/19 09:00 Levothyroxine 75 mcg PO DAILY 07/10/19 23:52 Activity as Tolerated [RC] PER UNIT ROUTINE Vital Signs [RC] 21,03,09,15 Acetaminophen [Tylenol] 650 mg PO Q4H PRN Benzocaine/Menthol [Dermoplast Pain Relief [place]] See Dose Instructions TOP ASDIRECTED PRN Docusate Sodium [Colace] 100 mg PO BID PRN Ibuprofen [Motrin] 600 mg PO Q4H PRN Witch Olive [Tucks] 1 pad TOP ASDIRECTED PRN Assess Lochia [WOMSER] Per Unit Routine Assess Uterine Involution [WOMSER] Per Unit Routine Breast Pump [WOMSER] Per Unit Routine Heat Therapy [OM.PC] PRN Ice Therapy [OM.PC] Per Unit Routine Perineal Care [OM.PC] Per Unit Routine Peripheral IV Discontinue [OM.PC] Routine Sitz Bath [OM.PC] Per Unit Routine 07/10/19 Breakfast Regular Diet [DIET] 07/11/19 23:52 Heat Therapy [OM.PC] PRN - Assessment Assessment:: PPD#1 - Plan Plan:: * Routine cares * Breast feeding * Discharge home tomorrow
[2019-07-11] MEDS: Levothyroxine 75 MCG Tab PO SCH (09:14)
--- NOTE | 2019-07-11 09:27 | PCM48HPAN ---
Post Anesthesia Note - EVALUATION WITHIN 48HRS OF ANESTHETIC Vital Signs in Normal Range: Yes Patient Participated in Evaluation: Yes Respiratory Function Stable: Yes Airway Patent: Yes Cardiovascular Function Stable: Yes Hydration Status Stable: Yes Pain Control Satisfactory: Yes Nausea and Vomiting Control Satisfactory: Yes Mental Status Recovered: Yes Vital Signs: Last Vital Signs Temp 97.9 F 07/11/19 08:09 Pulse 82 07/11/19 08:09 Resp 14 07/11/19 08:09 BP 129/95 H 07/11/19 08:09 Pulse Ox 97 07/11/19 08:09
--- NOTE | 2019-07-12 07:14 | PCM.DCSUM1 ---
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, antepartum SNOMED Code(s): 386925252, 222212712, 767585441 ICD Code: O35.8XX0 - MATERNAL CARE FOR OTH ABNORMALITY AND DAMAGE, UNSP Status: Acute Current Visit: Yes Qualifiers: Fetus number: single or unspecified fetus Qualified Code(s): O35.8XX0 - Maternal care for other (suspected) abnormality and damage, not applicable or unspecified (3) Bilobed placenta SNOMED Code(s): 46693797, 50103373 ICD Code: O43.899 - OTHER PLACENTAL DISORDERS, UNSPECIFIED TRIMESTER Status : Acute Current Visit: Yes (4) Vaginal delivery SNOMED Code(s): 625676164 ICD Code: O80 - ENCOUNTER FOR FULL-TERM UNCOMPLICATED DELIVERY Status: Acute Current Visit: Yes - Patient Summary/Data Complications: None Consults: None Recommended Follow-up Testing/Procedures: Follow up in 3 weeks for check Hospital Course: 29 y/o at 39 3/7 wks presented for IOL for findings of muticystic dysplastic kidney. IOL done with pitocin and AROM. Made good change to complete dilation and underwent an uncomplicated . See delivery note. did well and was discharged home on PPD#2 - Patient Instructions Diet: Regular Diet as Tolerated Activity: As Tolerated Activity, Other: Pelvic rest for 6 weeks Driving: May Drive Today Showering/Bathing: May Shower Showering/Bathing, Other: May bathe Notify Provider of: Fever, Increased Pain, Swelling and Redness, Drainage, Nausea and/or Vomiting - Discharge Plan *PRESCRIPTION DRUG MONITORING PROGRAM REVIEWED*: No *COPY OF PRESCRIPTION DRUG MONITORING REPORT IN PATIENT STEPHON: No Home Medications: Home Meds Levothyroxine 1 tab PO DAILY 07/01/19 [History] No115/Iron/Folic Acid [ 19 Chewable Tablet] 1 tab PO DAILY 06/19 [History] Docusate Sodium [Colace] 100 mg PO BID PRN cap 07/12/19 [Rx] Ibuprofen [Motrin] 600 mg PO Q4H PRN tablet 07/12/19 [Rx] Patient Handouts: Mastitis, Home Care Instructions for Mom, Breast Engorgement Referrals: Maria A Waterman MD [Primary Care Provider] - (3 weeks for post op check ) - Discharge Summary/Plan Comment DC Time >30 min.: No - Patient Data Vitals - Most Recent: Last Vital Signs Temp 36.4 C 07/12/19 03:52 Pulse 73 07/12/19 03:52 Resp 14 07/12/19 03:52 BP 107/66 07/12/19 03:52 Pulse Ox 98 07/12/19 03:52 Weight - Most Recent: 96.343 kg
--- NOTE | 2019-07-12 07:14 | PCM.PNPP ---
- General Info Date of Service: 07/12/19 Functional Status: Reports: Pain Controlled, Tolerating Diet, Ambulating, Urinating - Review of Systems General: Reports: No Symptoms Pulmonary: Reports: No Symptoms Cardiovascular: Reports: No Symptoms Gastrointestinal: Reports: No Symptoms Genitourinary: Reports: No Symptoms Musculoskeletal: Reports: No Symptoms Neurological: Reports: No Symptoms - Patient Data Vital Signs - Most Recent: Last Vital Signs Temp 36.4 C 07/12/19 03:52 Pulse 73 07/12/19 03:52 Resp 14 07/12/19 03:52 BP 107/66 07/12/19 03:52 Pulse Ox 98 07/12/19 03:52 Weight - Most Recent: 96.343 kg Med Orders - Current: Current Medications Acetaminophen (Tylenol) 650 mg PO Q4H PRN PRN Reason: mild pain or fever Benzocaine/Menthol (Dermoplast Pain Relief [place]) 0 gm TOP ASDIRECTED PRN PRN Reason: Perineal Comfort Measure Last Admin: 07/11/19 00:21 Dose: 1 canister Docusate Sodium (Colace) 100 mg PO BID PRN PRN Reason: Constipation Last Admin: 07/11/19 04:57 Dose: 100 mg Ibuprofen (Motrin) 600 mg PO Q4H PRN PRN Reason: Mild pain or fever Last Admin: 07/11/19 18:10 Dose: 600 mg Levothyroxine Sodium (Levothyroxine) 75 mcg PO DAILY ALEX Last Admin: 07/11/19 09:14 Dose: 75 mcg Witch Olive (Tucks) 1 pad TOP ASDIRECTED PRN PRN Reason: Perineal Comfort Measure Last Admin: 07/11/19 00:21 Dose: 1 jar Discontinued Medications Bupivacaine HCl (Sensorcaine-Mpf 0.25%) 10 ml .ROUTE .STK-MED ONE Stop: 07/10/19 00:01 Calcium Carbonate/Glycine (Tums) 1,000 mg PO Q2H PRN PRN Reason: Indigestion Last Admin: 07/10/19 20:57 Dose: 1,000 mg Diphenhydramine HCl (Benadryl) 25 mg IVPUSH Q6H PRN PRN Reason: Itching Ephedrine Sulfate (Ephedrine Sulfate) 5 mg IVPUSH ASDIRECTED PRN PRN Reason: HYPOTENTSION Fentanyl (Sublimaze) 100 mcg EPIDUR Q3H PRN PRN Reason: Pain Last Admin: 07/10/19 14:35 Dose: 100 mcg Fentanyl/Bupivacaine HCl (Fentanyl/Bupivacaine/Ns 2 Mcg-0.125% 100 Ml) 100 ml EPIDUR CONTINUOUS PRN PRN Reason: PAIN Last Admin: 07/10/19 14:35 Dose: 100 ml Lactated Ringer's (Ringers, Lactated) 1,000 mls @ 40 mls/hr IV ASDIRECTED ALEX Last Admin: 07/10/19 14:36 Dose: 40 mls/hr Oxytocin/Lactated Ringer's (Pitocin In Lr 10 Units/1,000 Ml) 10 unit in 1,000 mls @ 12 mls/hr IV TITRATE ALEX; Protocol Last Titration: 07/10/19 21:35 Dose: 23 munits/min, 138 mls/hr Oxytocin/Lactated Ringer's (Pitocin In Lr 10 Units/1,000 Ml) 10 unit in 1,000 mls @ 500 mls/hr IV .CONTINUOUS ALEX Nalbuphine HCl (Nubain) 10 mg IVPUSH Q2H PRN PRN Reason: Pain Ondansetron HCl (Zofran) 4 mg IVPUSH Q4H PRN PRN Reason: Nausea/Vomiting Sodium Chloride (Saline Flush) 10 ml FLUSH ASDIRECTED PRN PRN Reason: Keep Vein Open - Interaction Infant Disposition, : [place] in Room with Family Infant Interaction: Holding Infant Infant Feeding: Attempted ; Nursed Fair/Poor Support Person: - Recovery Exam Fundal Tone: Firm Fundal Level: 1 Fingerbreadths Below Umbilicus Fundal Placement: Midline Lochia Amount: Small Lochia Color: Rubra/Red Perineum Description: Intact, Minimal Bruising/Swelling Episiotomy/Laceration: None Bladder Status: Voiding Urinary Elimination: Voided - Exam General: Alert, Oriented, Cooperative GI/Abdominal Exam: Soft, Non-Tender Extremities: Normal Inspection Skin: Warm, Dry, Intact - Problem List & Annotations (1) 39 weeks gestation of SNOMED Code(s): 29114433 Code(s): Z3A.39 - 39 WEEKS GESTATION OF Status: Acute Current Visit: Yes (2) 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, antepartum SNOMED Code(s): 378306511, 790204519, 958321406 Code(s): O35.8XX0 - MATERNAL CARE FOR OTH ABNORMALITY AND DAMAGE, UNSP Status: Acute Current Visit: Yes Qualifiers: Fetus number: single or unspecified fetus Qualified Code(s): O35.8XX0 - Maternal care for other (suspected) abnormality and damage, not applicable or unspecified (3) Bilobed placenta SNOMED Code(s): 47775569, 43188951 Code(s): O43.899 - OTHER PLACENTAL DISORDERS, UNSPECIFIED TRIMESTER Status : Acute Current Visit: Yes (4) Vaginal delivery SNOMED Code(s): 138605151 Code(s): O80 - ENCOUNTER FOR FULL-TERM UNCOMPLICATED DELIVERY Status: Acute Current Visit: Yes - Problem List Review Problem List Initiated/Reviewed/Updated: Yes - My Orders Last 24 Hours: My Active Orders 07/11/19 23:52 Heat Therapy [OM.PC] PRN 07/12/19 07:13 Ready for Discharge [RC] PER UNIT ROUTINE - Assessment Assessment:: PPD#2 - Plan Plan:: * Routine cares * Breast feeding * Discharge today
[2019-07-12 11:40] VITALS: BP 111/64; PULSE 88
== END 2019-07-12 12:30 | disposition home or self-care (01) | DRG 560 ==
LOC: JD.OB 07:29 → OBSVTOIN 22:27 → JD.OB 22:28
PROVIDERS: ADMIT Obstetrics & Gynecology; ATTEND Obstetrics & Gynecology
PROC: 10E0XZZ Delivery of Products of Conception, External Approach (ICD-10-PCS; principal; 2019-07-10)
PROC: 3E033VJ Introduction of Other Hormone into Peripheral Vein, Percutaneous Approach (ICD-10-PCS; 2019-07-10)
PROC: 10907ZC Drainage of Amniotic Fluid, Therapeutic from Products of Conception, Via Natural or Artificial Opening (ICD-10-PCS; 2019-07-10)
PROC: 3E0R3BZ Introduction of Anesthetic Agent into Spinal Canal, Percutaneous Approach (ICD-10-PCS; 2019-07-10)
DX: O35.8XX0 Maternal care for other (suspected) fetal abnormality and damage, not applicable or unspecified (principal); O99.284 Endocrine, nutritional and metabolic diseases complicating childbirth; E03.9 Hypothyroidism, unspecified; O43.193 Other malformation of placenta, third trimester; Z37.0 Single live birth; Z3A.39 39 weeks gestation of pregnancy; Z79.899 Other long term (current) drug therapy; Z87.891 Personal history of nicotine dependence
CPT/HCPCS: 01967; 36415; 51702; 59025; 59409; 85027; 86592; 86850; 86900; 86901; A9270-GY; J2590; J3010; J3490; J7120

== ENCOUNTER 2021-06-03 21:00 | Emergency (ER) | payer BC ==
[2021-06-03 21:34] VITALS: BP 123/79; PULSE 110
--- NOTE | 2021-06-03 22:15 | EDM.PDOC ---
ED HPI GENERAL MEDICAL PROBLEM - General Chief Complaint: Respiratory Problem Stated Complaint: COVID EXPOSURE Time Seen by Provider: 06/03/21 21:33 Source of Information: Reports: Patient, RN Notes Reviewed History Limitations: Reports: No Limitations - History of Present Illness INITIAL COMMENTS - FREE TEXT/NARRATIVE: Patient is a 31-year-old female presenting to the emergency department for Covid testing. She had a close contact exposure. She states that she has no symptoms other than possibly a scratchy throat, however this may be related to other causes. Her mother today, so she has been crying quite a bit because of nasal congestion, but does not feel that this is an illness. She is had no fever chills. Denies nausea vomiting or diarrhea. Denies any chest pain or shortness of breath. Patient is 22 weeks . She came to the ER because she thought she could just be tested for Covid and not have to be seen by a provider, however this is not the case. She would only like a Covid test completed this evening so that she can go be with her father. Patient did receive 2 Moderna COVID vaccinations in August. She has not received a booster vaccination. - Related Data Allergies Allergy/AdvReac Type Severity Reaction Status Date / Time No Known Allergies Allergy Verified 12/14/16 00:22 Home Meds: Home Meds Levothyroxine 1 tab PO DAILY 07/01/19 [History] No115/Iron/Folic Acid [ 19 Chewable Tablet] 1 tab PO DAILY 07/01/19 [History] Docusate Sodium [Colace] 100 mg PO BID PRN cap 07/12/19 [Rx] Ibuprofen [Motrin] 600 mg PO Q4H PRN tablet 07/12/19 [Rx] Past Medical History - Past Health History Medical/Surgical History: Denies Medical/Surgical History HEENT History: Reports: None Cardiovascular History: Reports: Other (See Below) Other Cardiovascular History: One episode of SVT during Gastrointestinal History: Reports: GERD CRYSTAL MOUNTER History: Reports: Endocrine/Metabolic History: Reports: Other (See Below) Other Endocrine/Metabolic History: thyroid nodule - Infectious Disease History Infectious Disease History: Reports: None - Past Surgical History HEENT Surgical History: Reports: Oral Surgery Other HEENT Surgeries/Procedures: [place] teeth Cardiovascular Surgical History: Reports: None Social & Family History - Family History HEENT: Reports: None Cardiac: Reports: ID : Reports: Dialysis Endocrine/Metabolic: Reports: Hypothyroidism - Tobacco Use Tobacco Use Status *Q: Never Tobacco User - Caffeine Use Caffeine Use: Reports: Coffee - Recreational Drug Use Recreational Drug Use: No ED ROS GENERAL - Review of Systems Review Of Systems: Comprehensive ROS is negative, except as noted in HPI. ED EXAM, GENERAL - Physical Exam Exam: See Below Exam Limited By: No Limitations General Appearance: Alert, WD/WN, No Apparent Distress Respiratory/Chest: No Respiratory Distress, Lungs Clear, Normal Breath Sounds, No Accessory Muscle Use, Chest Non-Tender Cardiovascular: Normal Peripheral Pulses, Regular Rate, Rhythm, No Edema, No Gallop, No JVD, No Murmur, No Rub Neurological: Alert, Oriented, Normal Cognition, Normal Gait, Normal Reflexes, No Motor/Sensory Deficits Psychiatric: Normal Affect, Tearful Skin Exam: Warm, Dry, Intact, Normal Color, No Rash Course - Vital Signs Last Recorded V/S: Last Vital Signs Temp 97.1 F 06/03/21 21:31 Pulse 110 H 06/03/21 21:31 Resp 20 06/03/21 21:31 BP 123/79 06/03/21 21:31 Pulse Ox 97 06/03/21 21:31 - Orders/Labs/Meds Labs: Laboratory Tests 06/03/21 Range/Units 21:20 Influenza Type A RNA Negative (NEGATIVE) RSV RNA (INAAT) Negative (NEGATIVE) Influenza Type B RNA Negative (NEGATIVE) SARS-CoV-2 RNA (ERICKA) Positive H (NEGATIVE) - Re-Assessments/Exams Free Text/Narrative Re-Assessment/Exam: Patient is a 31-year-old female presenting to the ER with request to be tested for Covid. She had close exposure to individuals who tested positive, however she herself is asymptomatic. Her mother today and she would like to go be with her father, however she would like a negative Covid test prior to going there. Covid testing will be completed. I will call her with her results so that she may had home as she has a long drive to get home as they live out of town. Discharge instructions as documented. 06/03/21 23:07 Patient notified of positive Covid test. Discussed monoclonal antibodies. She would like to visit with her CRYSTAL MOUNTER prior to this. Discussed isolation recommendations. Departure - Departure Time of Disposition: 22:13 Disposition: Home, Self-Care 01 Condition: Good Clinical Impression: Encounter for screening for COVID-19 - Discharge Information *PRESCRIPTION DRUG MONITORING PROGRAM REVIEWED*: No *COPY OF PRESCRIPTION DRUG MONITORING REPORT IN PATIENT STEPHON: No Instructions: COVID-19 Frequently Asked Questions, Symptoms of COVID-19 - [facility] (07/22/2020) Referrals: Maria A Waterman MD [Primary Care Provider] - Forms: ED Department Discharge Additional Instructions: We will call you with your COVID results when they are available. Sepsis Event Note (ED) - Focused Exam Vital Signs: Vital Signs Temp Pulse Resp BP Pulse Ox 06/03/21 21:31 97.1 F 110 H 20 123/79 97
[2021-06-03 23:05] LABS: CORONAVIRUS COVID-19 NAA POSITIVE (NEGATIVE)
== END 2021-06-03 22:25 | disposition home or self-care (01) ==
LOC: JD.ED 21:00
DX: U07.1 COVID-19 (principal); K21.9 Gastro-esophageal reflux disease without esophagitis; E07.9 Disorder of thyroid, unspecified; Z79.899 Other long term (current) drug therapy
CPT/HCPCS: 0241U; 99283

== ENCOUNTER 2021-10-06 07:21 | Inpatient (IN) | payer BC ==
[2021-10-06] MEDS ORDERED: Sodium Chloride 0.9% 10 ML Syringe FLUSH PRN (18:29)
[2021-10-06] MEDS ORDERED: Nalbuphine HCl 10 MG/ 1ML Amp IVPUSH PRN (18:29)
[2021-10-06] MEDS ORDERED: Oxytocin/Lactated Ringers 10 UNIT/1,000 ML BAG IV SCH ×2 (18:30)
[2021-10-06] MEDS: Lactated Ringers 1,000 ML IV SCH ×2 (19:26→21:21)
[2021-10-06] MEDS ORDERED: Calcium Carbonate 500 MG Tab.Chew PO ONE (20:17)
[2021-10-06] MEDS ORDERED: Sodium Chloride 0.9% 10 ML Syringe FLUSH SCH (21:00)
[2021-10-06] MEDS ORDERED: diphenhydrAMINE 50 MG/ML SDV IVPUSH PRN (21:18)
[2021-10-06] MEDS ORDERED: fentaNYL 100 MCG/2 ML SDV EPIDUR PRN (21:18)
[2021-10-06] MEDS ORDERED: ePHEDrine 50 MG/ML SDV IVPUSH PRN (21:18)
[2021-10-06] MEDS: Bupivacaine/fentaNYL/NS 100 ML Bag EPIDUR PRN (21:24)
[2021-10-07] MEDS ORDERED: Bupivacaine 0.25% 10 ML SDV ONE
[2021-10-07] MEDS ORDERED: Calcium Carbonate 500 MG Tab.Chew PO PRN (00:08)
[2021-10-07] MEDS: Lactated Ringers 1,000 ML IV SCH (00:17)
[2021-10-07] MEDS ORDERED: Ondansetron 4 MG/2 ML SDV IVPUSH PRN (00:34)
[2021-10-07] MEDS: Bupivacaine/fentaNYL/NS 100 ML Bag EPIDUR PRN (05:05)
[2021-10-07] MEDS ORDERED: Acetaminophen 325 MG Tab PO PRN (07:28)
[2021-10-07] MEDS ORDERED: Witch Hazel Medicated Pads 40/Jar TOP PRN (07:28)
[2021-10-07] MEDS ORDERED: Benzocaine/Menthol 20%-0.5% Spray 78 GM Cannister TOP PRN (07:28)
[2021-10-07] MEDS: Ibuprofen 600 MG Tab PO PRN ×2 (12:48→20:47)
[2021-10-07] MEDS: Docusate Sodium 100 MG Cap PO PRN (20:48)
[2021-10-08] MEDS: Ibuprofen 600 MG Tab PO PRN ×2 (03:50→10:53)
[2021-10-08 03:54] VITALS: PULSE 81
[2021-10-08 09:28] VITALS: BP 118/73
[2021-10-08] MEDS: Docusate Sodium 100 MG Cap PO PRN (10:53)
== END 2021-10-08 11:15 | disposition home or self-care (01) | DRG 560 ==
LOC: JD.OB 07:21 → OBSVTOIN 10-07 07:21 → JD.OB 10-07 07:22
PROVIDERS: ADMIT Obstetrics & Gynecology; ATTEND Obstetrics & Gynecology
PROC: 10E0XZZ Delivery of Products of Conception, External Approach (ICD-10-PCS; principal; 2021-10-07)
PROC: 10907ZC Drainage of Amniotic Fluid, Therapeutic from Products of Conception, Via Natural or Artificial Opening (ICD-10-PCS; 2021-10-07)
PROC: 3E033VJ Introduction of Other Hormone into Peripheral Vein, Percutaneous Approach (ICD-10-PCS; 2021-10-07)
PROC: 3E0R3BZ Introduction of Anesthetic Agent into Spinal Canal, Percutaneous Approach (ICD-10-PCS; 2021-10-07)
PROC: 0UQMXZZ Repair Vulva, External Approach (ICD-10-PCS; 2021-10-07)
DX: O48.0 Post-term pregnancy (principal); Z3A.40 40 weeks gestation of pregnancy; Z37.0 Single live birth; O99.62 Diseases of the digestive system complicating childbirth; K21.9 Gastro-esophageal reflux disease without esophagitis; O71.82 Other specified trauma to perineum and vulva; Z87.891 Personal history of nicotine dependence
CPT/HCPCS: 01967; 36415; 51702; 59025; 59409; 85025; 86592; A9270-GY; J2590; J3010; J3490; J7120